=== PATIENT | male | born 1965 | race Hispanic/Latino ===

== ENCOUNTER 2018-07-14 12:02 | Inpatient (IN) | payer OTHER ==
[2018-07-14] MEDS ORDERED: NITROGLYCERIN 0.4 MG/TAB SL ONE (12:25)
--- NOTE | 2018-07-14 12:37 | RAD REPORT ---
EXAM DESCRIPTION: RAD - Chest Single View - 07/14/2018 12:26 pm CLINICAL HISTORY: CHEST PAIN Chest pain. COMPARISON: No comparisons FINDINGS: Portable technique limits examination quality. The lungs are grossly clear. The heart is normal in size. No displaced fractures. IMPRESSION: No acute intrathoracic process suspected.
[2018-07-14 12:43] LABS: Absolute Lymphocytes (CBC) 1.6 K/uL (0.7-4.9); Absolute Monocytes 0.6 K/uL (0.1-1.3); Absolute Neutrophil 11.3 K/uL (1.8-8.0); Basophils % 0.8 % (0-1.3); Eosinophils % 0.6 % (0-4.4); Lymphocytes % 11.7 % (15.3-44.8); MPV 9.9 fL (7.6-11.3); Monocytes % 4.5 % (3.3-12.3); RBC Red Blood Cell Count 4.71 M/uL (4.33-5.43)
[2018-07-14 12:56] LABS: Protime INR 0.99
[2018-07-14 13:07] LABS: ALT/SGPT 28 U/L (12-78); AST/SGOT 21 U/L (15-37); Albumin 3.9 g/dL (3.4-5.0); Alkaline Phosphatase 76 U/L (45-117); BUN Blood Urea Nitrogen 7 mg/dL (7-18); Bicarbonate 23 mmol/L (21-32); Bilirubin Direct < 0.1 mg/dL (0-0.2); Bilirubin Total 0.3 mg/dL (0.2-1.0); Glucose Level 127 mg/dL (74-106); NT PRO-BNP 64 pg/mL (<125); Potassium 3.9 mmol/L (3.5-5.1); Protein, Total 7.6 g/dL (6.4-8.2); Sodium Level 139 mmol/L (136-145); Troponin (Emerg Dept Use Only) 0.04 ng/mL (0.0-0.045)
--- NOTE | 2018-07-14 13:39 | ER ---
Nurse's Notes [facility] Name: Rickey Rogel Age: 53 yrs Sex: Male : 1965 Arrival Date: 07/14/2018 Time: 12:[address] Private MD: Diagnosis: Chest pain, unspecified Presentation: 07/14 12:07 Presenting complaint: EMS states: Substernal chest pain started about 0900, gave 4 jl7 aspirin, pain rated 8/10. Transition of care: patient was not received from another setting of care. Onset of symptoms was July 14, 2018. Risk Assessment: Do you want to hurt yourself or someone else? Patient reports no desire to harm self or others. Initial Sepsis Screen: Does the patient meet any 2 criteria? No. Patient's initial sepsis screen is negative. Does the patient have a suspected source of infection? No. Patient's initial sepsis screen is negative. Care prior to arrival: Medication(s) given: ASA, 81 mg, x 4, IV initiated. 18 GA, in the left antecubital area, Oxygen administered. via a non-rebreather mask. 12:07 Method Of Ar[facility]: [facility] 12:07 Acuity: TIERNEY 3 jl7 Triage Assessment: 12:09 General: Appears in no apparent distress. uncomfortable, Behavior is calm, cooperative, jl7 appropriate for age. Pain: Complains of pain in mid-sternal area Pain does not radiate. Pain currently is 8 out of 10 on a pain scale. Quality of pain is described as pressure, Pain began 3 hours ago. Is continuous. EENT: No signs and/or symptoms were reported regarding the EENT system. Neuro: Level of Consciousness is awake, alert, obeys commands, Oriented to person, place, time, situation. Cardiovascular: Heart tones present Patient's skin is warm and dry. Rhythm is regular. Respiratory: Airway is patent Respiratory effort is even, unlabored, Respiratory pattern is regular, symmetrical. GI: No signs and/or symptoms were reported involving the gastrointestinal system. : Derm: Skin is pink, warm \\T\\ dry. Musculoskeletal: No signs and/or symptoms reported regarding the musculoskeletal system. Historical: - Allergies: 12:09 No Known Allergies; jl7 - Home Meds: 12:09 None [Active]; jl7 - PMHx: 12:09 None; jl7 - PSHx: 12:09 None; jl7 - Immunization history:: Adult Immunizations not up to date. - Social history:: Smoking status: Patient uses tobacco products, smokes one pack cigarettes per day. Patient/guardian denies using alcohol, street drugs, The patient lives with family. - Ebola Screening: : No symptoms or risks identified at this time. - Family history:: not pertinent. Screenin:15 Abuse screen: Denies threats or abuse. Nutritional screening: No deficits noted. tw2 Tuberculosis screening: No symptoms or risk factors identified. Fall Risk None identified. Assessment: 12:10 General: Appears in no apparent distress. Behavior is cooperative, appropriate for age. tw2 Pain: Complains of pain in chest and mid-sternal area Pain does not radiate. Neuro: Level of Consciousness is awake, alert, obeys commands, Oriented to person, place, time, situation. Cardiovascular: Heart tones S1 S2 Patient's skin is warm and dry. Respiratory: Airway is patent Respiratory effort is even, unlabored, Respiratory pattern is regular, symmetrical, Breath sounds are clear bilaterally. GI: No signs and/or symptoms were reported involving the gastrointestinal system. Abdomen is round non-distended, Bowel sounds present X 4 quads. : No signs and/or symptoms were reported regarding the genitourinary system. EENT: Derm: No signs and/or symptoms reported regarding the dermatologic system. Musculoskeletal: Range of motion: intact in all extremities. 13:13 Reassessment: Patient appears in no apparent distress at this time. Patient and/or tw2 family updated on plan of care and expected duration. Pain level reassessed. Patient is alert, oriented x 3, equal unlabored respirations, skin warm/dry/pink. 13:16 Reassessment: reports "he is just not comfortable there is something going on, can tw2 you have the doctor come see him", provider notified. 13:27 Reassessment: Dr. Mosqueda at bedside. tw2 13:34 Reassessment: Dr. Mosqueda consulting with pt on decision to admit, pt vu. tw2 14:04 Reassessment: Patient and/or family updated on plan of care and expected duration. Pain tw2 level reassessed. Patient is alert, oriented x 3, equal unlabored respirations, skin warm/dry/pink. Dr. Stephens at bedside at this time. 14:14 Reassessment: Patient appears in no apparent distress at this time. Patient and/or tw2 family updated on plan of care and expected duration. Pain level reassessed. Patient is alert, oriented x 3, equal unlabored respirations, skin warm/dry/pink. 15:08 Reassessment: Patient appears in no apparent distress at this time. Patient and/or tw2 family updated on plan of care and expected duration. Pain level reassessed. Patient is alert, oriented x 3, equal unlabored respirations, skin warm/dry/pink. Vital Signs: 12:09 BP 153 / 87; Pulse 68; Resp 16; Pulse Ox 96% ; Weight 83.01 kg; Height 5 ft. 7 in. jl7 (170.18 cm); Pain 8/10; 13:13 BP 143 / 83; Pulse 69; Resp 21; Pulse Ox 97% on 2 lpm NC; tw2 13:16 Temp 98.5(O); tw2 13:28 Pulse 42; tw2 14:14 BP 109 / 64; Pulse 56; Resp 16; Pulse Ox 98% on R/A; tw2 15:08 BP 101 / 50; Pulse 51; Resp 17; Pulse Ox 100% on R/A; tw2 12:09 Body Mass Index 28.66 (83.01 kg, 170.18 cm) jl7 13:28 provider at bedside tw2 ED Course: 12:07 Patient arrived in ED. jl7 12:07 Bed in low position. Call light in reach. Side rails up X 1. absorption plant operator on. Pulse tw2 ox on. NIBP on. 12:09 Triage completed. jl7 12:09 Arm band placed on right wrist. jl7 12:12 Karlee Solano, MERCEDES is Primary Nurse. tw2 12:14 Jairo Mosqueda MD is Attending Physician. ma2 12:25 X-ray completed. Portable x-ray completed in exam room. Patient tolerated procedure jw2 well. 12:26 XRAY Chest (1 view) In Process Unspecified. EDMS 12:34 Maintain EMS IV. Dressing intact. Good blood return noted. Site clean \\T\\ dry. Gauge \\T\\ tw 2 site: 18 g LEFT AC. Oxygen administration via nasal cannula \\T\\ 2L/min. 13:37 Sherrell Stephens MD is Hospitalizing Provider. ma2 13:40 Inserted saline lock: 20 gauge in right antecubital area, using aseptic technique. IV tw2 discontinued, intact, bleeding controlled, No redness/swelling at site. Pressure dressing applied, LEFT ac infiltrated at this time. 14:22 Patient moved to [place] via stretcher. 14:31 Awaiting: attempted to call report, per Anthony the room is dirty and MERCEDES Argueta will need tw2 to call me back. 14:49 CT completed. Patient tolerated procedure well. Patient moved back from CT. vm2 15:05 No provider procedures requiring assistance completed. tw2 Administered Medications: 12:18 Drug: Nitroglycerin 0.4 mg Route: Sublingual; jl7 15:10 Follow up: Response: No adverse reaction tw2 13:42 Drug: Zofran 4 mg Route: IVP; Site: right antecubital; tw2 15:09 Follow up: Response: No adverse reaction tw2 13:44 Drug: morphine 4 mg Route: IVP; Site: right antecubital; tw2 15:09 Follow up: Response: No adverse reaction; Pain is decreased tw2 13:51 Drug: NS 0.9% 1000 ml Route: IV; Rate: 1 bolus; Site: right antecubital; tw2 15:09 Follow up: Response: No adverse reaction; IV Status: Completed infusion; IV Intake: tw2 1000ml Intake: 15:09 IV: 1000ml; Total: 1000ml. tw2 Outcome: 13:38 Decision to Hospitalize by Provider. ma2 15:06 Admitted to Med/surg accompanied by tech, via stretcher, room 209, with chart, Report tw2 called to Mercedes Argueta, per Ellie room is still not cleaned and to give them 15 minutes 15:06 Condition: stable 15:06 Instructed on the need for admit. 16:02 Patient left the ED. tw2 Signatures: Dispatcher [employer] Raven May Jenni 2 Karlee Solano RN RN tw2 Savana Ayers RN RN jl7 Yahaira Kemp 2 Jairo Mosqueda MD MD la2
--- NOTE | 2018-07-14 13:39 | EDPHYS ---
Physician Documentation [facility] Name: Rickey Rogel Age: 53 yrs Sex: Male : 1965 Arrival Date: 07/14/2018 Time: 12:[address] Private MD: ED Physician Jairo Mosqueda HPI: 07/14 12:15 This 53 yrs old Male presents to ER via EMS with complaints of Chest Pain > 30 ma2 y/o. 12:15 Onset: gradually, 1 hour(s) ago. The pain does not radiate. Associated signs and ma2 symptoms: Pertinent positives: Pertinent negatives: abdominal pain, diaphoresis, lower extremity pain, lightheadedness, near syncope. The chest pain is described as aching, crushing. Severity of pain: At its worst the pain was moderate in the emergency department the pain has improved. The patient has not experienced similar symptoms in the past. Historical: - Allergies: 12:09 No Known Allergies; jl7 - Home Meds: 12:09 None [Active]; jl7 - PMHx: 12:09 None; jl7 - PSHx: 12:09 None; jl7 - Immunization history:: Adult Immunizations not up to date. - Social history:: Smoking status: Patient uses tobacco products, smokes one pack cigarettes per day. Patient/guardian denies using alcohol, street drugs, The patient lives with family. - Ebola Screening: : No symptoms or risks identified at this time. - Family history:: not pertinent. ROS: 12:15 Constitutional: Negative for fever, chills, and weight loss, Neck: Negative for injury, ma2 pain, and swelling. 12:15 Respiratory: Negative for shortness of breath, cough, wheezing, and pleuritic chest pain, Abdomen/GI: Negative for abdominal pain, nausea, diarrhea, and constipation. 12:15 Cardiovascular: Positive for chest pain, Negative for edema, orthopnea, palpitations, acute changes. 12:15 All other systems are negative. Exam: 12:15 Constitutional: This is a well developed, well nourished patient who is awake, alert, ma2 and in no acute distress. Chest/axilla: Normal chest wall appearance and motion. Nontender with no deformity. No lesions are appreciated. Cardiovascular: Regular rate and rhythm with a normal S1 and S2. No gallops, murmurs, or rubs. Normal PMI, no JVD. No pulse deficits. Respiratory: Lungs have equal breath sounds bilaterally, clear to auscultation and percussion. No rales, rhonchi or wheezes noted. No increased work of breathing, no retractions or nasal flaring. Abdomen/GI: Soft, non-tender, with normal bowel sounds. No distension or tympany. No guarding or rebound. No evidence of tenderness throughout. Neuro: Awake and alert, GCS 15, oriented to person, place, time, and situation. Cranial nerves II-XII grossly intact. Motor strength 5/5 in all extremities. Sensory grossly intact. Cerebellar exam normal. Normal gait. Vital Signs: 12:09 BP 153 / 87; Pulse 68; Resp 16; Pulse Ox 96% ; Weight 83.01 kg; Height 5 ft. 7 in. jl7 (170.18 cm); Pain 8/10; 13:13 BP 143 / 83; Pulse 69; Resp 21; Pulse Ox 97% on 2 lpm NC; tw2 13:16 Temp 98.5(O); tw2 13:28 Pulse 42; tw2 14:14 BP 109 / 64; Pulse 56; Resp 16; Pulse Ox 98% on R/A; tw2 15:08 BP 101 / 50; Pulse 51; Resp 17; Pulse Ox 100% on R/A; tw2 12:09 Body Mass Index 28.66 (83.01 kg, 170.18 cm) 7 13:28 provider at bedside tw2 MDM: 12:14 [facility] 12[facility]15 Differential diagnosis: acute pericarditis, coronary artery disease chest wall pain, ma2 gastroesophageal reflux disease (GERD), stable angina. HEART Score: History: Highly Suspicious (2), ECG: Non specific repolarization disturbance / LBTB / PM (1), Age: > 45 and < 65 years (1), Risk Factors: 1 or 2 risk factors (1), Total Score =. The patient was not given aspirin in the Emergency Department. Administered by EMS. 13:36 Data reviewed: vital signs, nurses notes. Counseling: I had a detailed discussion with ma2 the patient and/or guardian regarding: the historical points, exam findings, and any diagnostic results supporting the discharge/admit diagnosis, the presence of at least one elevated blood pressure reading (>120/80) during this emergency department visit, the need for further work-up and treatment in the hospital. Response to treatment: the patient's symptoms have markedly improved after treatment. 07/14 12:15 Order name: Basic Metabolic Panel; Complete Time: 13:33 07/14 12:15 Order name: CBC with Diff; Complete Time: 13:33 07/14 12:15 Order name: LFT's; Complete Time: 13:33 07/14 12:15 Order name: Magnesium; Complete Time: 13:07/14 12:15 Order name: NT PRO-BNP; Complete Time: 13:07/14 12:15 Order name: PT-INR; Complete Time: 13:07/14 12:15 Order name: Troponin (emerg Dept Use Only); Complete Time: 13:07/14 12:15 Order name: XRAY Chest (1 view); Complete Time: 13:07/14 13:35 Order name: [facility] 07/14 14:18 Order name: CT Chest For PE Angio 07/14 14:53 Order name: CT EDRI 07/14 12:15 Order name: EKG; Complete Time: 12:16 07/14 12:15 Order name: Cardiac monitoring; Complete Time: 12:18 07/14 12:15 Order name: EKG - Nurse/Tech; Complete Time: 12:17 07/14 12:15 Order name: IV Saline Lock; Complete Time: 12:17 07/14 12:15 Order name: Labs collected and sent; Complete Time: 12:34 07/14 12:15 Order name: O2 Per Protocol; Complete Time: 12:17 07/14 12:15 Order name: O2 Sat Monitoring; Complete Time: 12:17 07/14 14:08 Order name: Diet Heart Healthy; Complete Time: 14:09 tw2 Administered Medications: 12:18 Drug: Nitroglycerin 0.4 mg Route: Sublingual; jl7 15:10 Follow up: Response: No adverse reaction tw2 13:42 Drug: Zofran 4 mg Route: IVP; Site: right antecubital; tw2 15:09 Follow up: Response: No adverse reaction tw2 13:44 Drug: morphine 4 mg Route: IVP; Site: right antecubital; tw2 15:09 Follow up: Response: No adverse reaction; Pain is decreased tw2 13:51 Drug: NS 0.9% 1000 ml Route: IV; Rate: 1 bolus; Site: right antecubital; tw2 15:09 Follow up: Response: No adverse reaction; IV Status: Completed infusion; IV Intake: tw2 1000ml Disposition: 07/14/18 13:38 Hospitalization ordered by Sherrell Stephens for Observation. Preliminary diagnosis is Chest pain, unspecified. - Bed requested for Telemetry/MedSurg (observation). - Status is Observation. tw2 - Condition is Stable. - Problem is new. - Symptoms are unchanged. UTI on Admission? No Signatures: Dispatcher [employer] EDMS Domitila Dickey RN RN iw Karlee Solano RN RN tw2 Savana yAers RN RN jl7 Jairo Mosqueda MD MD ma2 Corrections: (The following items were deleted from the chart) 14:25 13:38 Hospitalization Ordered by Sherrell Stephens MD for Observation. Preliminary diagnosis iw is Chest pain, unspecified. Bed requested for Telemetry/MedSurg (observation). Status is Observation. Condition is Stable. Problem is new. Symptoms are unchanged. UTI on Admission? No. ma2 16:02 14:25 07/14/2018 13:38 Hospitalization Ordered by Sherrell Stephens MD for Observation. tw2 Preliminary diagnosis is Chest pain, unspecified. Bed requested for Telemetry/MedSurg (observation). Status is Observation. Condition is Stable. Problem is new. Symptoms are unchanged. UTI on Admission? No. iw
[2018-07-14] MEDS ORDERED: NA CHLORIDE 0.9% 1,000 ML ONE (13:47)
[2018-07-14] MEDS ORDERED: MORPHINE 4 MG/ML SYR ONE (13:47)
[2018-07-14] MEDS ORDERED: ONDANSETRON 4 MG/2 ML VIAL ONE (13:47)
--- NOTE | 2018-07-14 14:52 | RAD REPORT ---
EXAM DESCRIPTION: CT - Chest For Pe Angio - 07/14/2018 2:43 pm CLINICAL HISTORY: Chest pain, dyspnea COMPARISON: Chest films same date TECHNIQUE: Dynamically enhanced 3 mm thick images of the chest were obtained during administration o f approximately 150mL Isovue 370 IV contrast. Coronal and oblique MIP reconstruction images were gene rated and reviewed. Exam utilizes a protocol to evaluate the pulmonary arterial tree. All CT scans are performed using dose optimization technique as appropriate and may include automated exposure control or mA/KV adjustment according to patient size. FINDINGS: No pulmonary emboli are identified. The aorta as imaged shows no acute or suspicious finding. No pericardial thickening or effusion. No infiltrate or mass in the lung parenchyma. No pleural effusion or pleural thickening. No mediastinal or hilar suspicious masses. No chest wall masses or abnormal axillary lymphadenopathy. Limited upper abdomen imaging shows cholecystectomy clips without biliary tree dilatation. Benitez of t he distal thoracic esophagus are mildly prominent. No mass or asymmetric wall thickening. . IMPRESSION: No pulmonary emboli identified. No focal lung parenchymal process seen. No mediastinal or hilar suspicious finding. Minimal prominence of the distal thoracic esophagus probably still normal range. No mass or asymmetri c wall thickening.
[2018-07-14] MEDS ORDERED: ACETAMINOPHEN 500 MG TAB PO PRN (15:14)
[2018-07-14] MEDS ORDERED: ALPRAZOLAM 0.25 MG TABLET PO PRN (15:14)
[2018-07-14] MEDS ORDERED: MORPHINE 4 MG/ML SYR IV PRN (15:14)
[2018-07-14] MEDS ORDERED: ZOLPIDEM TARTRATE 5 MG TABLET PO PRN (15:14)
[2018-07-14] MEDS ORDERED: NITROGLYCERIN 0.4 MG/TAB SL PRN (15:26)
[2018-07-14] MEDS ORDERED: ENOXAPARIN 40 MG/0.4 ML SQ SCH (16:00)
--- NOTE | 2018-07-14 20:47 | EKG ---
Test Date: 2018-07-14 Test Time: 19:19:06 Candles Pourer: RT MEASUREMENT RESULTS: Intervals: Rate: 61 IA: 168 QRSD: 82 QT: 400 QTc: 402 [place]: P: 68 IA: 168 QRS: 11 T: 71 INTERPRETIVE STATEMENTS: Normal sinus rhythm Nonspecific T wave abnormality Abnormal ECG Compared to ECG 07/14/2018 12:06:04 T-wave abnormality now present ST (T wave) deviation no longer present Possible ischemia no longer present Electronically Signed On 07-14-18 20:47:31 CONSTRUCTION ADMINISTRATIVE ASSISTANT by Dangelo Pantoja
--- NOTE | 2018-07-14 20:50 | EKG ---
Test Date: 2018-07-14 Test Time: 12:06:04 [employer]: KEENAN MEASUREMENT RESULTS: Intervals: Rate: 69 CA: 196 QRSD: 86 QT: 392 QTc: 420 [place]: P: 64 CA: 196 QRS: 49 T: 104 INTERPRETIVE STATEMENTS: Normal sinus rhythm ST & T wave abnormality, consider lateral ischemia Abnormal ECG No previous ECG available for comparison Electronically Signed On 07-14-18 20:47:58 DEPUTY SHERIFF CHIEF by Dangelo Pantoja
[2018-07-14] MEDS: ATORVASTATIN 40 MG TAB PO SCH (21:10)
[2018-07-14 21:44] LABS: Urine Appearance CLEAR; Urine Bilirubin NEGATIVE (NEG); Urine Blood NEGATIVE (NEG); Urine Color YELLOW; Urine Glucose TRACE (NEG); Urine Protein NEGATIVE (NEG); Urine Specific Gravity >=1.030 (1.005-1.030); Urine Urobilinogen 0.2 mg/dL (0.2-1.0); Urine pH 7.5 (5.0-7.0)
[2018-07-14 21:57] LABS: Urine Microscopic Reflex NO UMIC
--- NOTE | 2018-07-15 01:46 | HP ---
Date of Admission: 07/14/2018 Sharebroker: Dr. Pantoja with Cardiology. Chief Complaint: Chest pain. History Of Present Illness: The patient is a 53-year-old male with no significant past medical history other than smoking, who has not seen a physician for over 3 years. Does not take his medications. Comes in with sudden onset of chest pain. The patient felt as if he had some acid reflux and gas. He had some burping, unable to relieve the pain. The patient felt like he was nauseous; however, did not vomit. Then, had sudden onset of sharp pain which was substernal, associated with diaphoresis and nausea. At that time, the patient became concerned and came to the emergency room for further evaluation. Symptoms are constant, moderate, progressively worsening. Denies any alleviating or aggravating factors. The pain started at rest. Has not experienced this type of pain previously. In the ER, his vital signs were stable. He was afebrile. His heart rate, however, did drop into the 40s on one occasion. His workup revealed elevated white blood cell count. His initial cardiac enzymes and troponin were negative. D-dimer, however, was elevated. CT angio of the chest is pending. When seen in the ER, he was awake , alert, and oriented x3. He had significant relief with nitroglycerin and aspirin. Past Medical History: Hypertension. Past Surgical History: None. Allergies: NO KNOWN DRUG ALLERGIES. Medications: The patient does not take any medications on a regular basis. Social History: The patient is currently employed. Smokes a pack and a half per day for greater than 30 years ago. Rare alcohol use. No illicit drug use. The patient is , has 2 children. Does not use any assistive ambulatory devices. Independent in his activities of daily living. Family History: Parent has atrial fibrillation. No history of [place] or premature coronary artery disease in the family. Review of Systems: An 11-point system was reviewed and negative except as per HPI. Physical Examination: Vital Signs: Blood pressure 152/87, pulse 68, respirations 16, O2 of 96% on room air, and temperature 98.5. General: Awake, alert, oriented x3. Some mild distress. HEENT: Normocephalic, atraumatic. PERRLA. EOMI. Moist mucous membranes. Oropharynx is clear. Conjunctivae are anicteric. Neck: Supple. No JVD. Trachea midline. CV: S1, S2. Regular rate and rhythm. Peripheral pulses present. Respiratory: Moving air well bilaterally. No wheezing or stridor. No use of accessory muscles. Gastrointestinal: Abdomen is soft, nontender, nondistended. Positive bowel sounds. No guarding or rigidity. Extremities: No clubbing, cyanosis, or edema. No calf tenderness. Neurologic: Cranial nerves 2 through 12 intact grossly. No focal neurological deficit. Speech is normal. Strength is 5/5 bilateral upper and lower extremities. Sensation intact to light touch. Skin: No rashes. Normal skin turgor. Psychiatric: Mood is okay. Affect is full. Insight and judgment are good. Laboratory Data: INR 0.99. D-dimer 931. WBC 13.7, H and H 15 and 44, platelets 274, and neutrophils 82%. Sodium 139, potassium 3.9, chloride 108, CO2 of 23, BUN 7, creatinine 0.91, glucose 127, calcium 8.7, magnesium 2. Troponin 0.04. Chest x-ray personally reviewed, shows no acute intrathoracic process. CT angio chest is pending. Assessment And Plan: A 53-year-old male with; 1. Chest pain, rule out acute coronary syndrome. Initial cardiac enzyme and electrocardiogram have been normal. We will obtain serial cardiac enzymes and electrocardiogram as needed. Consult Cardiology. We will obtain echocardiogram to rule out any wall motion abnormality. The patient did have relief with aspirin and nitroglycerin. We will start on chest pain guidelines. We will hold beta-stephen due to episode of bradycardia. Heart rate was in the 40s. 2. Essential hypertension. The patient is noncompliant with treatment. Does not take his medications. Has not seen a physician in over 3 years. 3. Elevated D-dimer. We will follow up on CT scan angio chest to rule out pulmonary embolism, although this patient is not tachycardic or tachypneic. No pleuritic chest pain. He does have risk factor of smoking. 4. Nicotine dependence with cigarette smoking. Counseled for less than 10 minutes. 5. Overweight, body mass index 28. 6. Neutrophilic leukocytosis, unclear etiology. No dysuria. Chest x-ray is clear. Maybe related to acute phase reactant. We will continue to monitor. No signs of sepsis. No indication for antibiotics at this time. 7. Deep venous thrombosis prophylaxis with Lovenox. Plan: Admit the patient to Med-Surg, place as observation. ADDENDUM: A/P: VIRAL LEE/MACHELLE Voice ID: [id number] MTDD
--- NOTE | 2018-07-15 03:37 | CON ---
Date of Consultation: 07/14/2018 Reason For Consultation: Acute coronary syndrome. History Of Present Illness: Mr. Rogel is a 53-year-old Latin-[place] male with history of hyperten dhiraj, family history of heart disease, tobacco use, noncompliance, has not been to a physician for ma ny years; developed substernal chest pressure with diaphoresis, nausea and shortness of breath. His pain was exertional, lasted approximately 4 hours. He came to the emergency room, was admitted and w as found to have a troponin elevation consistent with non-ST elevation myocardial infarction. Allergies: NONE. Review of Systems: Negative. Social History: Positive for tobacco. Family History: Positive for heart disease. Medications: At home are none. Physical Examination: Vital Signs: Stable. He was afebrile. HEENT: Negative. Neck: Supple without any bruit, lymphadenopathy, JVD, or thyromegaly. Chest: Clear to auscultation and percussion. Cardiac: Revealed a regular rhythm and rate without any murmurs, gallops, or rubs. Abdomen: Benign. Extremities: Revealed no clubbing, cyanosis, or edema. Diagnostic Data: His creatinine is 0.91. White count was 13,000. His D-dimer was 931. His troponi n was 12.60. His cholesterol was 203, triglycerides 282. His EKG showed normal sinus rhythm with no nspecific changes. Chest x-ray and CT angiogram were negative. Impression And Plan: 1.Non-ST elevation myocardial infarction. 2.Elevated white count and D-dimer secondary to his myocardial infarction. 3.Hypertension. 4.Dyslipidemia. Mr. Rogel needs to be on aspirin, statin, beta-blockers. He needs to have a heart catheterization d one to define his coronary anatomy and possibly intervene with a stent. The patient understands the risk and the benefits of the procedure and he agrees to proceed. AMANDA/MACHELLE Voice ID: [id number] Report ID: [id number]
[2018-07-15 06:06] LABS: Absolute Lymphocytes (CBC) 2.8 K/uL (0.7-4.9); Absolute Monocytes 0.8 K/uL (0.1-1.3); Absolute Neutrophil 8.8 K/uL (1.8-8.0); Basophils % 0.7 % (0-1.3); Eosinophils % 1.7 % (0-4.4); Hematocrit 41.9 % (39.6-49.0); Lymphocytes % 22.1 % (15.3-44.8); Monocytes % 6.3 % (3.3-12.3); RBC Red Blood Cell Count 4.44 M/uL (4.33-5.43)
[2018-07-15 06:17] LABS: Potassium 4.5 mmol/L (3.5-5.1)
--- NOTE | 2018-07-15 07:49 | ECHO ---
HEIGHT: 5 ft 7 in WEIGHT: 187 lb 0 oz DATE OF STUDY: 07/14/[address]: Sherrell Stephens MD 2-DIMENSIONAL: YES M.MODE: YES DOPPLER: YES COLOR FLOW: YES TDS: PORTABLE: DEFINITY: BUBBLE STUDY: DIAGNOSIS: CHEST PAIN CARDIAC HISTORY: CATHERIZATION: NO SURGERY: NO PROSTHETIC VALVE: NO PACEMAKER: NO MEASUREMENTS (cm) DIASTOLIC (NORMALS) SYSTOLIC (NORMALS) IVSd 1.1 (0.6-1.2) LA Diam 33.7 (1.9-4.0) LVEF 60-65% LVIDd 3.7 (3.5-5.7) LVIDs 2.8 (2.0-3.5) %FS 25% LVPWd 1.1 (0.6-1.2) Ao Diam 2.6 (2.0-3.7) 2 DIMENSIONAL ASSESSMENT: RIGHT ATRIUM: NORMAL LEFT ATRIUM: NORMAL RIGHT VENTRICLE: NORMAL LEFT VENTRICLE: NORMAL TRICUSPID VALVE: NORMAL MITRAL VALVE: NORMAL PULMONIC VALVE: NORMAL AORTIC VALVE: NORMAL PERICARDIAL EFFUSION: NONE AORTIC ROOT: NORMAL LEFT VENTRICULAR WALL MOTION: NORAML DOPPLER/COLOR FLOW: MILD TRICUPSID REGURGITATION. RIGHT VENTRICULAR SYSTOLIC PRESSURE 36 mmHg. COMMENTS: NORMAL 2-DIMENSIONAL ECHOCARDIOGRAM EJECTION FRACTION 60-65%. MILD TRICUSPID REGURGITATION. NO WALL MOTION ABNORMALITY. NO EFFUSION. TECHNOLOGIST: TRISH CARO
[2018-07-15] MEDS: ENOXAPARIN 80 MG/0.8 ML SQ SCH (09:00)
[2018-07-15] MEDS ORDERED: NA CHLORIDE 0.9% 500 ML ONE (09:06)
[2018-07-15] MEDS ORDERED: HEPA 1000U/500MLS 1,000 UNIT/500 ML BAG IV ONE (09:06)
[2018-07-15] MEDS ORDERED: LIDOCAINE 1% 20 ML MDV ONE (09:07)
[2018-07-15] MEDS ORDERED: LIDOCAINE 1% MPF 30 ML VIAL ONE (09:07)
[2018-07-15] MEDS ORDERED: FENTANYL CITR 100 MCG/2 ML ONE (09:08)
[2018-07-15] MEDS ORDERED: MIDAZOLAM HCL 2 MG/2 ML INJ ONE ×2 (09:08→09:41)
[2018-07-15] MEDS ORDERED: NA CHLORIDE 0.9% 50 ML ONE (09:21)
[2018-07-15] MEDS ORDERED: NITROGLYCERIN/D5W 25 MG/250 ML BTL IV ONE (10:05)
[2018-07-15] MEDS ORDERED: NITROGLYCERIN 100 MCG/ML SYR (for cath lab use only) IV ONE (10:05)
[2018-07-15] MEDS ORDERED: PRASUGREL (EFFIENT) 10 MG TAB ONE (10:17)
[2018-07-15] MEDS ORDERED: ASPIRIN 325 MG TAB ONE (10:19)
[2018-07-15] MEDS: LISINOPRIL 10 MG TAB PO SCH (11:37)
[2018-07-15] MEDS: NA CHLORIDE 0.9% 1,000 ML IV SCH ×2 (11:37→22:00)
[2018-07-15] MEDS: ASPIRIN EC 81 MG TAB PO SCH (11:38)
--- NOTE | 2018-07-15 15:20 | P.PN ---
Subjective Date of Service: 07/15/18 Chief Complaint: Chest pain Subjective: No new changes Patient seen and examined at bedside. No family at bedside. Chart reviewed and case discussed with nursing staff. Reports no chest pain this morning Review of Systems 10-point ROS is otherwise unremarkable Physical Examination - Vital Signs Temperature: 98.1 F Blood Pressure: 138/80 Pulse: 53 Respirations: 17 Pulse Ox (%): 95 - Physical Exam General: Alert, In no apparent distress, Oriented x3 HEENT: Atraumatic, PERRLA, EOMI Neck: Supple, JVD not distended Respiratory: Clear to auscultation bilaterally, Normal air movement Cardiovascular: Regular rate/rhythm, Normal S1 S2 Gastrointestinal: Normal bowel sounds, No tenderness Musculoskeletal: No tenderness Integumentary: No rashes Neurological: Normal speech, Normal tone, Normal affect Lymphatics: No axilla or inguinal lymphadenopathy Assessment And Plan - Current Problems (Diagnosis) (1) Chest pain Current Visit: Yes Status: Acute Qualifiers: Chest pain type: unspecified Qualified Code(s): R07.9 - Chest pain, unspecified (2) Hypertension Current Visit: Yes Status: Acute Qualifiers: Hypertension type: essential hypertension Qualified Code(s): I10 - Essential (primary) hypertension (3) Leukocytosis Current Visit: Yes Status: Acute Qualifiers: Leukocytosis type: unspecified Qualified Code(s): D72.829 - Elevated white blood cell count, unspecified (4) Nicotine dependence Current Visit: Yes Status: Acute Qualifiers: Nicotine product type: cigarettes Substance use status: uncomplicated Qualified Code(s): F17.210 - Nicotine dependence, cigarettes, uncomplicated (5) Overweight (BMI 25.0-29.9) Current Visit: Yes Status: Chronic (6) Elevated d-dimer Current Visit: Yes Status: Acute (7) Non-compliance Current Visit: Yes Status: Chronic - Plan This is a 53-year-old male with: Chest pain, rule out acute coronary syndrome Initial electrocardiogram normal and troponin elevated to 12.6 from initial 3.68 Cardiology was consulted. Patient is pending heart catheterization Essential hypertension Patient has a history of noncompliance and he does not these medications at home. He has not seen a physician in over 3 years Blood pressure has been stable on lisinopril. Continue lisinopril Elevated D-dimer CT scan angio of the chest without any evidence of pulmonary embolus Continue to monitor Nicotine dependence with cigarette smoking Counseled on smoking cessation Overweight, BMI of 28 Neutrophilic leukocytosis, unclear etiology Improving DVT prophylaxis: Hold for heart catheterization GI prophylaxis: None Diet: NPO for heart catheterization Disposition: Pending heart catheterization
--- NOTE | 2018-07-15 22:01 | OP ---
Date of Procedure: 07/15/2018 Surgeon: Dangelo Pantoja MD Protective Clothing Issuer: Shekhar Donohue. Total conscious sedation was 60 minutes. Indications: Admitted to Dr. Stephens's service on 07/14/2018 with a [id number] myocardial infarc tion. Description Of Procedure: Today, on 07/15/2018, he was brought to the catheterization lab as an inpa tient, prepped and draped in the routine sterile fashion. Procedure that was performed was left hear t catheterization, selective coronary arteriogram, primary stent of the distal RCA, angioplasty of th e proximal posterolateral branch. The patient was given 4 mg of Versed and 25 of fentanyl for sedati on. Right common femoral artery access was obtained through the 6-Sammarinese sheath. Angio-Seal was use d to close the case. Angiography using Darlene catheter 6-Sammarinese left and right showed mild plaquing in the LAD and circumflex. He was codominant. RCA had no plaquing proximally; but distally before the bifurcation of the posterolateral and PDA, had 90%-plus stenosis with a possible thrombus. A CLEAR stent was placed, a 2.5 x 16 Synergy, just before the bifurcation with 0% residual. After the s tent, there seemed to be some progression of the thrombus toward the posterolateral branch which had some mild disease to start off with. Angioplasty there with a 2.5 x 12 Emerge balloon left about a 1 0% residual with some haziness. There was no hemodynamic compromise. No chest pain. No arrhythmias . No EKG changes. The patient tolerated the procedure well without any complications. Blood Loss: 5 cc. Postoperative Diagnosis: Status post successful stent of the right coronary artery, percutaneous tra nsluminal coronary angioplasty of the posterolateral. Medications: The patient was given 60 mg of Effient. He was given 325 mg of aspirin. He was on Ang iomax during the procedure. He will be later placed on statin and beta-blockers. NB/MODL Voice ID: [id number] Report ID: [id number]
[2018-07-15] MEDS: ATORVASTATIN 40 MG TAB PO SCH (22:24)
[2018-07-16] MEDS: NA CHLORIDE 0.9% 1,000 ML IV SCH (08:00)
[2018-07-16] MEDS: LISINOPRIL 10 MG TAB PO SCH (09:54)
[2018-07-16] MEDS: ASPIRIN EC 81 MG TAB PO SCH (09:54)
[2018-07-16] MEDS: ENOXAPARIN 80 MG/0.8 ML SQ SCH (09:55)
--- NOTE | 2018-07-16 20:17 | PN ---
Date of Progress Note: 07/16/2018 The patient had come in with a subendocardial ID. He was a pretty healthy gentleman without any past medical history except for reflux. He does smoke however, has a family history. Yesterday had a walsh bendocardial ID, underwent a catheterization, had a stent of his distal RCA successfully and an angio plasty of his proximal posterolateral branch off the RCA. He had moderate diffuse plaquing of the ci rcumflex and the LAD. The stent went well. He had no complications overnight. He had no chest pain . Telemetry remained normal sinus rhythm. His right groin is intact. He will be going home on aspi rin, Plavix, Lipitor and Toprol, and he will see me in the office in the next 2 weeks. AMANDA/MACHELLE Voice ID: [id number] Report ID: [id number]
--- NOTE | 2018-07-24 12:01 | P.DS ---
Admission Date: 07/14/18 Discharge Date: 07/16/18 Disposition: ROUTINE DISCHARGE Discharge Condition: GOOD Reason for Admission: Chest pain Consultations: Cardiology, Dr. Pantoja Procedures: 07/15/2018: stent of his distal RCA and an angioplasty of his proximal posterolateral branch off the RCA. - Problems (1) Chest pain Status: Acute Qualifiers: Chest pain type: unspecified Qualified Code(s): R07.9 - Chest pain, unspecified (2) Hypertension Status: Acute Qualifiers: Hypertension type: essential hypertension Qualified Code(s): I10 - Essential (primary) hypertension (3) Leukocytosis Status: Acute Qualifiers: Leukocytosis type: unspecified Qualified Code(s): D72.829 - Elevated white blood cell count, unspecified (4) Nicotine dependence Status: Acute Qualifiers: Nicotine product type: cigarettes Substance use status: uncomplicated Qualified Code(s): F17.210 - Nicotine dependence, cigarettes, uncomplicated (5) Overweight (BMI 25.0-29.9) Status: Chronic (6) Elevated d-dimer Status: Acute (7) Non-compliance Status: Chronic (8) NSTEMI (non-ST elevated myocardial infarction) Status: Acute Brief History of Present Illness: The patient is a 53-year-old male with no significant past medical history other than smoking, who has not seen a physician for over 3 years. Does not take his medications. Comes in with sudden onset of chest pain. The patient felt as if he had some acid reflux and gas. He had some burping, unable to relieve the pain. The patient felt like he was nauseous; however, did not vomit. Then, had sudden onset of sharp pain which was substernal, associated with diaphoresis and nausea. At that time, the patient became concerned and came to the emergency room for further evaluation. Symptoms are constant, moderate, progressively worsening. Denies any alleviating or aggravating factors. The pain started at rest. Has not experienced this type of pain previously. In the ER, his vital signs were stable. He was afebrile. His heart rate, however, did drop into the 40s on one occasion. His workup revealed elevated white blood cell count. His initial cardiac enzymes and troponin were negative. D-dimer, however, was elevated. CT angio of the chest is pending. When seen in the ER, he was awake, alert, and oriented x3. He had significant relief with nitroglycerin and aspirin. Hospital Course: Non STEMI: Initial cardiac enzyme and electrocardiogram were normal. He had elevation in serial cardiac enzymes. Cardiology was consulted and patine underwent angioplasty wiht stnt placement. He was started on chest pain guidelines. beta-stephen was held due to episode of bradycardia. Heart rate was in the 40s. He tolerated the stent placement well wihtout any complications. He was discharged with chest pain medications and instructions to follow up with cardiology. 2. Essential hypertension. The patient is noncompliant with treatment. Does not take his medications. Started HTN medications, counseled and educated on medication compliance. 3. Elevated D-dimer. CT PE negative for PE. He does have risk factor of smoking. Hemodynamically stable. 4. Nicotine dependence with cigarette smoking. Counseled for smoking cessation. Vital Signs/Physical Exam: Temp Pulse Resp BP Pulse Ox 99 F 63 18 141/76 H 97 07/16/18 12:00 07/16/18 12:00 07/16/18 12:00 07/16/18 12:00 07/16/18 12:00 General: Alert, In no apparent distress HEENT: Atraumatic, PERRLA, EOMI Neck: Supple, JVD not distended Respiratory: Clear to auscultation bilaterally, Normal air movement Cardiovascular: Regular rate/rhythm, Normal S1 S2 Gastrointestinal: Normal bowel sounds, No tenderness Musculoskeletal: No tenderness Integumentary: No rashes Neurological: Normal speech, Normal tone, Normal affect Lymphatics: No axilla or inguinal lymphadenopathy Laboratory Data at Discharge: WBC 12.7 K/uL (4.3-10.9) H 07/15/18 05:32 Hgb 14.2 g/dL (13.6-17.9) 07/15/18 05:32 Hct 41.9 % (39.6-49.0) 07/15/18 05:32 Plt Count 248 K/uL (152-406) 07/15/18 05:32 PT 11.7 SECONDS (9.5-12.5) 07/14/18 12:28 INR 0.99 07/14/18 12:28 Sodium 142 mmol/L (136-145) 07/15/18 05:32 Potassium 4.5 mmol/L (3.5-5.1) 07/15/18 05:32 BUN 9 mg/dL (7-18) 07/15/18 05:32 Creatinine 0.88 mg/dL (0.55-1.3) 07/15/18 05:32 Glucose 93 mg/dL (74-106) 07/15/18 05:32 Magnesium 2.0 mg/dL (1.8-2.4) 07/14/18 12:28 Total Bilirubin 0.3 mg/dL (0.2-1.0) 07/14/18 12:28 AST 21 U/L (15-37) 07/14/18 12:28 ALT 28 U/L (12-78) 07/14/18 12:28 Alkaline Phosphatase 76 U/L (45-117) 07/14/18 12:28 Troponin I 12.60 ng/mL (0.0-0.045) H* D 07/14/18 18:55 Triglycerides 311 mg/dL (<150) H 07/15/18 05:32 Cholesterol 189 mg/dL (<200) 07/15/18 05:32 HDL Cholesterol 34 mg/dL (40-60) L 07/15/18 05:32 Cholesterol/HDL Ratio 5.56 07/15/18 05:32 Home Medications: Atorvastatin Calcium [Lipitor] 80 mg PO DAILY #30 tablet 07/16/18 Bupropion HCl [Wellbutrin] 150 mg PO BID #120 tablet 07/16/18 Clopidogrel Bisulfate [Plavix] 75 mg PO DAILY #30 tablet 07/16/18 Metoprolol Succinate [Toprol Xl] 50 mg PO DAILY #30 tab 07/16/18 New Medications: Atorvastatin Calcium [Lipitor] 80 mg PO DAILY #30 tablet Bupropion HCl [Wellbutrin] 150 mg PO BID #120 tablet Clopidogrel Bisulfate [Plavix] 75 mg PO DAILY #30 tablet Metoprolol Succinate [Toprol Xl] 50 mg PO DAILY #30 tab Patient Discharge Instructions: Please follow up with your primary care physician in 1 week. Please follow up with cardiology in 2 weeks. Please make sure to slat pickler the medications with the prescription provided to you by cardiology. Return to the Emergency room with worsening symptoms. Diet: AHA Activity: Ad marilyn Followup: Dangelo Pantoja MD [ACTIVE - CAN ADMIT] - 1-2 Weeks (Please call clinic to schedule an appointment) Time spent managing pt's care (in minutes): 55
== END 2018-07-16 13:31 | disposition home or self-care (01) | DRG 247 ==
LOC: ER 12:02 → OBSVTOIN 13:48 → ERHOLD 13:48 → 2ND 15:06
PROVIDERS: ADMIT Family Medicine; ATTEND Family Medicine
PROC: 027034Z Dilation of Coronary Artery, One Artery with Drug-eluting Intraluminal Device, Percutaneous Approach (ICD-10-PCS; principal; 2018-07-15)
PROC: 02703ZZ Dilation of Coronary Artery, One Artery, Percutaneous Approach (ICD-10-PCS; 2018-07-15)
PROC: 4A023N7 Measurement of Cardiac Sampling and Pressure, Left Heart, Percutaneous Approach (ICD-10-PCS; 2018-07-15)
PROC: B211YZZ Fluoroscopy of Multiple Coronary Arteries using Other Contrast (ICD-10-PCS; 2018-07-15)
DX: I21.4 Non-ST elevation (NSTEMI) myocardial infarction (principal); I10 Essential (primary) hypertension; F17.210 Nicotine dependence, cigarettes, uncomplicated; Z91.14 Patient's other noncompliance with medication regimen; E78.5 Hyperlipidemia, unspecified; E66.3 Overweight; Z68.28 Body mass index [BMI] 28.0-28.9, adult; D72.828 Other elevated white blood cell count
CPT/HCPCS: 36415; 71045; 71275; 80048; 80061; 80076; 81003; 83735; 83880; 84484; 85025; 85347; 85379; 85610; 92928; 93005; 93306; 93454; 94760; 96361; 96374; 96375; 99285; C1725; C1760; C1893; G0378; J0583; J1650; J2250; J2405; J3010; J7030; Q9967

== ENCOUNTER 2018-12-06 10:46 | Emergency (ER) | payer OTHER ==
[2018-12-06] MEDS ORDERED: ONDANSETRON 4 MG/2 ML VIAL ONE (11:25)
[2018-12-06] MEDS ORDERED: NA CHLORIDE 0.9% 1,000 ML ONE (11:25)
[2018-12-06 11:35] LABS: Protime INR 1.02
[2018-12-06 11:39] LABS: Absolute Lymphocytes (CBC) 0.7 K/uL (0.7-4.9); Basophils % 0.2 % (0-1.3); Eosinophils % 0.7 % (0-4.4); Hematocrit 47.2 % (39.6-49.0); Lymphocytes % 5.9 % (15.3-44.8); MPV 10.1 fL (7.6-11.3); Monocytes % 4.5 % (3.3-12.3); RBC Red Blood Cell Count 5.05 M/uL (4.33-5.43)
[2018-12-06 11:49] LABS: ALT/SGPT 30 U/L (12-78); AST/SGOT 22 U/L (15-37); Albumin 4.1 g/dL (3.4-5.0); Alkaline Phosphatase 86 U/L (45-117); BUN Blood Urea Nitrogen 19 mg/dL (7-18); Bicarbonate 22 mmol/L (21-32); Bilirubin Direct 0.2 mg/dL (0-0.2); Bilirubin Total 0.6 mg/dL (0.2-1.0); Glucose Level 110 mg/dL (74-106); Lipase 72 U/L (73-393); Magnesium 2.1 mg/dL (1.8-2.4); NT PRO-BNP 139 pg/mL (<125); Potassium 4.1 mmol/L (3.5-5.1); Protein, Total 8.1 g/dL (6.4-8.2); Sodium Level 140 mmol/L (136-145); Troponin (Emerg Dept Use Only) < 0.02 ng/mL (0.0-0.045)
[2018-12-06 12:30] LABS: Blood Morphology Comment NOT SEEN (NOT SEEN); Platelet Estimate ADEQ
--- NOTE | 2018-12-06 12:36 | ER ---
Nurse's Notes [facility] Name: Rickey Rogel Age: 53 yrs Sex: Male : 1965 Arrival Date: 12/06/2018 Time: 10:47 Bed 6 Private MD: Diagnosis: Essential (primary) hypertension;Malaise and fatigue Presentation: 12/06 10:49 Presenting complaint: Patient states: This morning I started feeling body aches, la1 nausea, feeling hot. I had similar symptoms earlier this year when I needed a stent. Transition of care: patient was not received from another setting of care. Onset of symptoms was December 06, 2018. Risk Assessment: Do you want to hurt yourself or someone else? Patient reports no desire to harm self or others. Initial Sepsis Screen: Does the patient meet any 2 criteria? No. Patient's initial sepsis screen is negative. Does the patient have a suspected source of infection? No. Patient's initial sepsis screen is negative. Care prior to arrival: None. 10:49 Method Of Arrival: Wheelchair la1 10:49 Acuity: TIERNEY 2 la1 Triage Assessment: 11:08 General: Appears in no apparent distress. uncomfortable, Behavior is calm, cooperative, hj appropriate for age. Pain: Denies pain. GI: Reports nausea. Historical: - Allergies: 10:53 No Known Allergies; la1 - Home Meds: 10:53 atorvastatin 80 mg oral tab 1 tab once daily [Active]; aspirin 81 mg Oral TbEC 1 tab la1 every other day [Active]; clopidogrel 75 mg oral tab 1 tab once daily [Active]; bupropion HCl 150 mg Oral TbER 1 tab once daily [Active]; metoprolol tartrate 50 mg Oral tab 1 tab once daily [Active]; - PMHx: 10:53 Hypertension; la1 - PSHx: 10:53 Heart stents; la1 - Immunization history:: Adult Immunizations up to date. - Social history:: Smoking status: Patient uses tobacco products, Quit June this year. - Ebola Screening: : No symptoms or risks identified at this time. - Family history:: not pertinent. Screenin:08 Abuse screen: Denies threats or abuse. Denies injuries from another. Nutritional hj screening: No deficits noted. Tuberculosis screening: No symptoms or risk factors identified. Fall Risk None identified. Assessment: 11:08 GI: Abdomen is non-distended. hj 11:08 General: Appears in no apparent distress. uncomfortable, Behavior is calm, cooperative, hj appropriate for age. Pain: Denies pain. Neuro: Level of Consciousness is awake, alert, obeys commands, Oriented to person, place, time, situation, Appropriate for age. Cardiovascular: Capillary refill < 3 seconds Patient's skin is warm and dry. Respiratory: Airway is patent Respiratory effort is even, unlabored, Respiratory pattern is regular, symmetrical. : No signs and/or symptoms were reported regarding the genitourinary system. EENT: No signs and/or symptoms were reported regarding the EENT system. Derm: No signs and/or symptoms reported regarding the dermatologic system. Musculoskeletal: No signs and/or symptoms reported regarding the musculoskeletal system. Vital Signs: 10:53 BP 136 / 80; Pulse 86; Resp 16; Temp 98.6; Pulse Ox 98% on R/A; Weight 83.01 kg; Height la1 5 ft. 7 in. (170.18 cm); 11:35 BP 130 / 81; Pulse 85; Resp 18; Pulse Ox 100% on R/A; hj 12:10 BP 115 / 67; Pulse 79; Resp 18; Pulse Ox 99% on R/A; hj 12:55 BP 114 / 72; Pulse 71; Resp 18; Pulse Ox 100% on R/A; hj 10:53 Body Mass Index 28.66 (83.01 kg, 170.18 cm) la1 ED Course: 10:47 Patient arrived in ED. rg4 10:50 Triage completed. la1 10:53 Arm band placed on left wrist. la1 11:00 Tristan Philippe MD is Attending Physician. [facility] 11:00 Initial lab(s) drawn, by fl, sent to lab. Inserted saline lock: 20 gauge in right hj antecubital area, using aseptic technique. Blood collected. 11:06 Casey Shipman, MERCEDES is Primary Nurse. hj 11:08 Patient has correct armband on for positive identification. Placed in gown. Bed in low hj position. Call light in reach. Side rails up X 1. Adult w/ patient. 11:44 X-ray completed. Portable x-ray completed in exam room. Patient tolerated procedure tm4 well. 11:45 XRAY Chest (1 view) In Process Unspecified. EDVT 12:35 Dangelo Pantoja MD is Referral Physician. [facility] 12:55 No provider procedures requiring assistance completed. IV discontinued, intact, hj bleeding controlled, No redness/swelling at site. Pressure dressing applied. Administered Medications: 11:07 Drug: NS 0.9% 500 ml Route: IV; Rate: bolus; Site: right antecubital; hj 11:50 Follow up: IV Status: Completed infusion; IV Intake: 500ml hj 11: Drug: Zofran 4 mg Route: IVP; Site: right antecubital; hj 11:50 Follow up: Response: No adverse reaction hj 11:50 Follow up: Response: No adverse reaction; Nausea is decreased hj 11:25 Drug: NS 0.9% 1000 ml Route: IV; Rate: 125 ml/hr; Site: right antecubital; hj 11:51 Follow up: IV Status: Infusion continued hj 12:55 Follow up: IV Status: Completed infusion; Order to discontinue infusion; IV Intake: hj 600ml Intake: 11:50 IV: 500ml; Total: 500ml. hj 12:55 IV: 600ml; Total: 1100ml. hj Outcome: 12:35 Discharge ordered by . [facility] 12:56 Discharged to home ambulatory, with family. 12:56 Condition: stable 12:56 Discharge instructions given to patient, family, Instructed on discharge instructions, follow up and referral plans. Demonstrated understanding of instructions, follow-up care. 12:59 Patient left the ED. hj Signatures: Dispatcher [employer] [facility] Tristan Philippe MD MD cha Marroquin, Tracy tm4 Dany Myles RN RN la1 Casey Shipman, Mary Jason RN rg4
--- NOTE | 2018-12-06 12:36 | EDPHYS ---
Physician Documentation [facility] Name: Rickey Rogel Age: 53 yrs Sex: Male : 1965 Arrival Date: 12/06/2018 Time: 10:47 Bed 6 Private MD: ED Physician Tristan Philpipe HPI: 12/06 11:34 This 53 yrs old Male presents to ER via Wheelchair with complaints of Not lisa Feeling Well, Nausea. 11:34 The patient presents to the emergency department with nausea. Onset: The lisa symptoms/episode began/occurred 1 day(s) ago. Possible causes: unknown. The symptoms are aggravated by nothing. Associated signs and symptoms: The patient has no apparent associated signs or symptoms. Severity of symptoms: At their worst the symptoms were mild in the emergency department the symptoms are unchanged. The patient has not experienced similar symptoms in the past. Historical: - Allergies: 10:53 No Known Allergies; la1 - Home Meds: 10:53 atorvastatin 80 mg oral tab 1 tab once daily [Active]; aspirin 81 mg Oral TbEC 1 tab la1 every other day [Active]; clopidogrel 75 mg oral tab 1 tab once daily [Active]; bupropion HCl 150 mg Oral TbER 1 tab once daily [Active]; metoprolol tartrate 50 mg Oral tab 1 tab once daily [Active]; - PMHx: 10:53 Hypertension; la1 - PSHx: 10:53 Heart stents; la1 - Immunization history:: Adult Immunizations up to date. - Social history:: Smoking status: Patient uses tobacco products, Quit June this year. - Ebola Screening: : No symptoms or risks identified at this time. - Family history:: not pertinent. ROS: 11:34 Constitutional: Negative for fever, chills, and weight loss, Eyes: Negative for injury, lisa pain, redness, and discharge, ENT: Negative for injury, pain, and discharge, Neck: Negative for injury, pain, and swelling, Cardiovascular: Negative for chest pain, palpitations, and edema, Respiratory: Negative for shortness of breath, cough, wheezing, and pleuritic chest pain, Abdomen/GI: Negative for abdominal pain, nausea, vomiting, diarrhea, and constipation, Back: Negative for injury and pain, : Negative for injury, bleeding, discharge, and swelling, MS/Extremity: Negative for injury and deformity, Skin: Negative for injury, rash, and discoloration, Neuro: Negative for headache, weakness, numbness, tingling, and seizure, Psych: Negative for depression, anxiety, suicide ideation, homicidal ideation, and hallucinations, Allergy/Immunology: Negative for hives, rash, and allergies, Endocrine: Negative for neck swelling, polydipsia, polyuria, polyphagia, and marked weight changes, Hematologic/Lymphatic: Negative for swollen nodes, abnormal bleeding, and unusual bruising. Exam: 11:34 Constitutional: This is a well developed, well nourished patient who is awake, alert, lisa and in no acute distress. Head/Face: Normocephalic, atraumatic. Eyes: Pupils equal round and reactive to light, extra-ocular motions intact. Lids and lashes normal. Conjunctiva and sclera are non-icteric and not injected. Cornea within normal limits. Periorbital areas with no swelling, redness, or edema. ENT: Nares patent. No nasal discharge, no septal abnormalities noted. Tympanic membranes are normal and external auditory canals are clear. Oropharynx with no redness, swelling, or masses, exudates, or evidence of obstruction, uvula midline. Mucous membranes moist. Neck: Trachea midline, no thyromegaly or masses palpated, and no cervical lymphadenopathy. Supple, full range of motion without nuchal rigidity, or vertebral point tenderness. No Meningismus. Chest/axilla: Normal chest wall appearance and motion. Nontender with no deformity. No lesions are appreciated. Cardiovascular: Regular rate and rhythm with a normal S1 and S2. No gallops, murmurs, or rubs. Normal PMI, no JVD. No pulse deficits. Respiratory: Lungs have equal breath sounds bilaterally, clear to auscultation and percussion. No rales, rhonchi or wheezes noted. No increased work of breathing, no retractions or nasal flaring. Abdomen/GI: Soft, non-tender, with normal bowel sounds. No distension or tympany. No guarding or rebound. No evidence of tenderness throughout. Back: No spinal tenderness. No costovertebral tenderness. Full range of motion. Male : Normal genitalia with no discharge or lesions. Skin: Warm, dry with normal turgor. Normal color with no rashes, no lesions, and no evidence of cellulitis. MS/ Extremity: Pulses equal, no cyanosis. Neurovascular intact. Full, normal range of motion. Neuro: Awake and alert, GCS 15, oriented to person, place, time, and situation. Cranial nerves II-XII grossly intact. Motor strength 5/5 in all extremities. Sensory grossly intact. Cerebellar exam normal. Normal gait. Psych: Awake, alert, with orientation to person, place and time. Behavior, mood, and affect are within normal limits. 11:34 Musculoskeletal/extremity: DVT Exam: No signs of deep vein thrombosis. no pain, no swelling, no tenderness, negative Homans' sign noted on exam, no appreciated bluish discoloration, no erythema, no increased warmth. Vital Signs: 10:53 BP 136 / 80; Pulse 86; Resp 16; Temp 98.6; Pulse Ox 98% on R/A; Weight 83.01 kg; Height la1 5 ft. 7 in. (170.18 cm); 11:35 BP 130 / 81; Pulse 85; Resp 18; Pulse Ox 100% on R/A; hj 12:10 BP 115 / 67; Pulse 79; Resp 18; Pulse Ox 99% on R/A; hj 12:55 BP 114 / 72; Pulse 71; Resp 18; Pulse Ox 100% on R/A; hj 10:53 Body Mass Index 28.66 (83.01 kg, 170.18 cm) la1 MDM: 11:00 Patient medically screened. [facility] 11:36 Data reviewed: vital signs, nurses notes, lab test result(s), EKG, radiologic studies, lisa plain films. 12/06 11:03 Order name: Basic Metabolic Panel; Complete Time: 12:24 [facility] 12/06 11:03 Order name: CBC with Diff; Complete Time: 12:30 [facility] 12/06 11:03 Order name: LFT's; Complete Time: 12:24 [facility] 12/06 11:03 Order name: Magnesium; Complete Time: 12:24 [facility] 12/06 11:03 Order name: NT PRO-BNP; Complete Time: 12:24 [facility] 12/06 11:03 Order name: PT-INR; Complete Time: 12:24 [facility] 12/06 11:03 Order name: Troponin (emerg Dept Use Only); Complete Time: 12:24 [facility] 12/06 11:03 Order name: XRAY Chest (1 view) [facility] 12/06 11:03 Order name: Lipase; Complete Time: 12:24 [facility] 12/06 12:30 Order name: Manual Differential; Complete Time: 12:30 EDMS 12/06 11:03 Order name: EKG; Complete Time: : [facility] 12/06 11:03 Order name: Cardiac monitoring; Complete Time: 11: [facility] 12/06 11:03 Order name: EKG - Nurse/Tech; Complete Time: 11: [facility] 12/06 11:03 Order name: IV Saline Lock; Complete Time: : [facility] 12/06 11:03 Order name: Labs collected and sent; Complete Time: : [facility] 12/06 11:03 Order name: O2 Per Protocol; Complete Time: [facility] 12/06 11:03 Order name: O2 Sat Monitoring; Complete Time: [facility] Administered Medications: 11:07 Drug: NS 0.9% 500 ml Route: IV; Rate: bolus; Site: right antecubital; hj 11:50 Follow up: IV Status: Completed infusion; IV Intake: 500ml 11:07 Drug: Zofran 4 mg Route: IVP; Site: right antecubital; hj 11:50 Follow up: Response: No adverse reaction hj 11:50 Follow up: Response: No adverse reaction; Nausea is decreased hj 11:25 Drug: NS 0.9% 1000 ml Route: IV; Rate: 125 ml/hr; Site: right antecubital; hj 11:51 Follow up: IV Status: Infusion continued hj 12:55 Follow up: IV Status: Completed infusion; Order to discontinue infusion; IV Intake: hj 600ml Disposition: 12/06/18 12:35 Discharged to Home. Impression: Essential (primary) hypertension, Malaise and fatigue. - Condition is Stable. - Discharge Instructions: Hypertension, Weakness, Hypertension, [id number], Weakness, [id number], Managing Your Hypertension. - Medication Reconciliation Form, Thank You Letter, Antibiotic Education, Prescription Opioid Use form. - Follow up: Private Physician; When: 2 - 3 days; Reason: Recheck today's complaints, Continuance of care, Re-evaluation by your physician. Follow up: Dangelo Pantoja; When: 2 - 3 days; Reason: Recheck today's complaints, Continuance of care, Re-evaluation by your physician. - Problem is new. - Symptoms have improved. Signatures: Dispatcher [employer] EDMS Tristan Philippe MD MD cha Attema, Lee RN RN la1 Casey Shipman RN RN hj Corrections: (The following items were deleted from the chart) 12:59 12:35 12/06/2018 12:35 Discharged to Home. Impression: Essential (primary) hj hypertension; Malaise and fatigue. Condition is Stable. Discharge Instructions: Hypertension, Weakness, Hypertension, [id number], Weakness, [id number], Managing Your Hypertension. Forms are Medication Reconciliation Form, Thank You Letter, Antibiotic Education, Prescription Opioid Use. Follow up: Private Physician; When: 2 - 3 days; Reason: Recheck today's complaints, Continuance of care, Re-evaluation by your physician. Follow up: Dangelo Pantoja; When: 2 - 3 days; Reason: Recheck today's complaints, Continuance of care, Re-evaluation by your physician. Problem is new. Symptoms have improved. lisa
--- NOTE | 2018-12-06 12:52 | RAD REPORT ---
EXAM DESCRIPTION: RAD - Chest Single View - 12/06/2018 11:47 am CLINICAL HISTORY: Cough, abdominal pain, body aches COMPARISON: June 2018 TECHNIQUE: AP portable chest image was obtained 1142 hours . FINDINGS: Lungs are clear. Heart and vasculature are normal. No measurable pleural effusion and no p neumothorax. No acute bony abnormality seen. No acute aortic findings suspected. IMPRESSION: No acute cardiopulmonary process. No significant interval change.
--- NOTE | 2018-12-08 07:57 | EKG ---
Test Date: 2018-12-06 Test Time: 10:58:58 Crumb Packer: TARA MEASUREMENT RESULTS: Intervals: Rate: 71 MS: 170 QRSD: 68 QT: 384 QTc: 417 [place]: P: 63 MS: 170 QRS: 28 T: -23 INTERPRETIVE STATEMENTS: Normal sinus rhythm Nonspecific ST and T wave abnormality Abnormal ECG Compared to ECG 07/14/2018 19:19:06 ST (T wave) deviation now present T-wave abnormality no longer present Electronically Signed On 12-08-18 07:54:58 CDT by Mychal Cheung
== END 2018-12-06 12:59 | disposition home or self-care (01) ==
LOC: ER 10:46
DX: I10 Essential (primary) hypertension (principal); R53.81 Other malaise; R53.83 Other fatigue; Z79.82 Long term (current) use of aspirin; Z95.818 Presence of other cardiac implants and grafts
CPT/HCPCS: 36415; 71045; 80048; 80076; 83690; 83735; 83880; 84484; 85025; 85610; 93005; 96361; 96374; 99284; J2405; J7030

== ENCOUNTER 2021-10-04 10:25 | Emergency (ER) | payer OTHER, SELFPAY ==
--- OUTSIDE RECORDS SUMMARY | 2021-10-04 10:31 | XMS REPORT | Continuity of Care Document ---
:1965 Author Organization [facility] t Address [address] [place] [address] Care Team Providers Name Role Phone TIRSO BARRERA Primary Care Physician Unavailable CHRIS CARPENTER Attending Clinician Unavailable RADIOLOGY Attending Clinician Unavailable Radiology Attending Clinician Unavailable Doctor Unassigned, Name Attending Clinician Unavailable CARRERO Attending Clinician Unavailable Singer RUIZ Attending Clinician VERA Attending Clinician Unavailable Vera JUNG Attending Clinician Cassie OROURKE L Attending Clinician Cosme CHANDLER, S Attending Clinician Fifi VILLAR Attending Clinician Unavailable Jacquelin Carpenter MD Attending Clinician Only, Test Attending Clinician Unavailable Jacquelin CARPENTER Admitting Clinician Unavailable BENJI Admitting Clinician Unavailable CARRERO Admitting Clinician Unavailable Jacquelin Carpenter MD Admitting Clinician Payers Payer Name Policy Type Policy Number Effective Date Expiration Date Fifi munoz [employer] O [id number] 2019 00:00:00 Problems Condition Condition Condition Status Onset Resolution Last Treating Co mments Source Name Details Category Date Date Treatment Clinician Date Trigger Trigger Disease Active Overview: Univ ers thumb of thumb of 2-10 Formattin ity of right hand right hand 00:00: g of this [place] 00 note Medical might be Branch different from the original. Added automatic ally from request for surgery [id number] Chest pain Chest pain Disease Active U nivjp 6-21 ity of 00:00: [place] 00 Medical Branch Cholecysti Cholecysti Disease Active U nivers tis tis 12-05 ity of 00:00: [place] [facility] Branch Obesity Obesity Disease Active Univers 12-05 ity of 00:00: [place] [facility] HTN HTN Disease Active Univers (hypertens (hypertens 12-05 it y of ion) ion) 00:00: [place] [facility] HLD HLD Disease Active Univers (hyperlipi (hyperlipi 12-05 it y of demia) demia) 00:00: [place] [facility] Smoking Smoking Disease Active Univers 12-05 ity of 00:00: [place] [facility] Allergies, Adverse Reactions, Alerts Allergy Allergy Status Severity Reaction(s) Onset Inactive Treating Comm ents Source Name Type Date Date Clinician NO KNOWN Drug Active [facility] ALLERGIE Class ity of S [facility] Social History Social Habit Start Date Stop Date Quantity Comments Source Exposure to Not sure [facility] SARS-CoV-2 (event) [facility] Tobacco use and 2019-12-04 2019-12-04 Never used Universit y of exposure 00:00:00 00:00:00 [facility] Cigarettes smoked 2019-12-04 2019-12-04 Univers ity of current (pack per 00:00:00 00:00:00 [place] ) - Reported Branch History of tobacco 2018-07-14 Cigarette Smoker University of use 00:00:00 [facility] Sex [birth year] Universit y of 00:00:00 00:00:00 [facility] Smoking Status Start Date Stop Date Source Former smoker 2019-12-04 00:00:00 2019-12-04 00:00:00 Universi ty of [facility] Medications Ordered Filled Start Stop Current Ordering Indication Dosage Frequency Signature Comments Components Source Medication Medication Date Date Medication? Clinician (SIG) Name Name naproxen Yes [id number] 550mg Take 1 Univers sodium 3-03 tablet by ity of (ANAPROX 00:00: mouth 2 [place] DS) 550 mg 00 (two) Medical tablet times Branch daily with meals. methylPREDN Yes [id number] Take by Univers ISolone 3-03 mouth ity of (MEDROL, 00:00: SEE-INSTRU Yosef as HERBERTH,) 4 mg 00 CTIONS. Medica l tablets follow Branch package directions naproxen 2021-0 Yes [id number] 550mg Take 1 Univers sodium 3-03 tablet by ity of (ANAPROX 00:00: mouth 2 [place] DS) 550 mg 00 (two) Medical tablet times Branch daily with meals. methylPREDN 2021-0 Yes [id number] Take by Univers ISolone 3-03 mouth ity of (MEDROL, 00:00: SEE-INSTRU [place],) 4 mg 00 CTIONS. Medica l tablets follow Branch package directions naproxen 2021-0 Yes [id number] 550mg Take 1 Univers sodium 3-03 tablet by ity of (ANAPROX 00:00: mouth 2 [place] DS) 550 mg 00 (two) Medical tablet times Branch daily with meals. methylPREDN 2021-0 Yes [id number] Take by Univers ISolone 3-03 mouth ity of (MEDROL, 00:00: SEE-INSTRU [place],) 4 mg 00 CTIONS. Medica l tablets follow Branch package directions methocarbam 0 2021- Yes [id number] 500mg Take 1 Univers oL 500 mg 3-03 03-09 tablet by ity of tablet 00:00: 05:59 mouth 3 [place] 00 :00 (three) Medical times Branch daily for 5 days. prednisoLON Yes [id number] 1[drp] Place 1 Univers E acetate 1 4-13 [id number] Drop in ity of % 00:00: both eyes [place] ophthalmic 00 4 (four) Medic al suspension times Branch drops daily. prednisoLON Yes [id number] 1[drp] Place 1 Univers E acetate 1 4-13 [id number] Drop in ity of % 00:00: both eyes [place] ophthalmic 00 4 (four) Medic al suspension times Branch drops daily. prednisoLON Yes [id number] 1[drp] Place 1 Univers E acetate 1 4-13 [id number] Drop in ity of % 00:00: both eyes [place] ophthalmic 00 4 (four) Medic al suspension times Branch drops daily. prednisoLON Yes [id number] 1[drp] Place 1 Univers E acetate 1 4-13 [id number] Drop in ity of % 00:00: both eyes [place] ophthalmic 00 4 (four) Medic al suspension times Branch drops daily. prednisoLON Yes [id number] 1[drp] Place 1 Univers E acetate 1 4-13 [id number] Drop in ity of % 00:00: both eyes [place] ophthalmic 00 4 (four) Medic al suspension times Branch drops daily. prednisoLON Yes [id number] 1[drp] Place 1 Univers E acetate 1 4-13 [id number] Drop in ity of % 00:00: both eyes [place] ophthalmic 00 4 (four) Medic al suspension times Branch drops daily. prednisoLON Yes [id number] 1[drp] Place 1 Univers E acetate 1 4-13 [id number] Drop in ity of % 00:00: both eyes [place] ophthalmic 00 4 (four) Medic al suspension times Branch drops daily. prednisoLON Yes [id number] 1[drp] Place 1 Univers E acetate 1 4-13 [id number] Drop in ity of % 00:00: both eyes [place] ophthalmic 00 4 (four) Medic al suspension times Branch drops daily. prednisoLON Yes [id number] 1[drp] Place 1 Univers E acetate 1 4-13 [id number] Drop in ity of % 00:00: both eyes [place] ophthalmic 00 4 (four) Medic al suspension times Branch drops daily. moxifloxaci 2020- No 1[drp] 1 Drop, Univers n (VIGAMOX) 09-26 04-12 Both Eyes, i ty of 0.5 % 05:00: 04:52 ONCE NOW, [place] ophthalmic 00 :00 1 dose, Medica l drops 1 Mon Branch Drop 09/26/20 at 0000, PHYLICIA moxifloxaci Yes [id number] 1[drp] Place 1 Univers n 0.5 % 09-25 9104 Drop in ity of ophthalmic 00:00: [place] eyes [place] drops 00 4 (four) Medical times Branch daily. erythromyci Yes [id number] .5[in_u Place 0.5 Univers n 5 mg/gram -11 9104 s] Inches in ity of (0.5 %) 00:00: both eyes [place] ophthalmic 00 4 (four) Medic al ointment times Branch daily. moxifloxaci Yes [id number] 1[drp] Place 1 Univers n 0.5 % 4-11 9104 Drop in ity of ophthalmic 00:00: [place] eyes [place] drops 00 4 (four) Medical times Branch daily. erythromyci Yes [id number] .5[in_u Place 0.5 Univers n 5 mg/gram 4-11 9104 s] Inches in ity of (0.5 %) 00:00: both eyes [place] ophthalmic 00 4 (four) Medic al ointment times Branch daily. moxifloxaci Yes [id number] 1[drp] Place 1 Univers n 0.5 % 4-11 9104 Drop in ity of ophthalmic 00:00: [place] eyes [place] drops 00 4 (four) Medical times Branch daily. erythromyci Yes [id number] .5[in_u Place 0.5 Univers n 5 mg/gram 4-11 9104 s] Inches in ity of (0.5 %) 00:00: both eyes [place] ophthalmic 00 4 (four) Medic al ointment times Branch daily. moxifloxaci Yes [id number] 1[drp] Place 1 Univers n 0.5 % 4-11 9104 Drop in ity of ophthalmic 00:00: [place] eyes [place] drops 00 4 (four) Medical times Branch daily. erythromyci Yes [id number] .5[in_u Place 0.5 Univers n 5 mg/gram 4-11 9104 s] Inches in ity of (0.5 %) 00:00: both eyes [place] ophthalmic 00 4 (four) Medic al ointment times Branch daily. moxifloxaci Yes [id number] 1[drp] Place 1 Univers n 0.5 % 4-11 9104 Drop in ity of ophthalmic 00:00: [place] eyes [place] drops 00 4 (four) Medical times Branch daily. erythromyci Yes [id number] .5[in_u Place 0.5 Univers n 5 mg/gram 4-11 9104 s] Inches in ity of (0.5 %) 00:00: both eyes [place] ophthalmic 00 4 (four) Medic al ointment times Branch daily. moxifloxaci Yes [id number] 1[drp] Place 1 Univers n 0.5 % 4-11 9104 Drop in ity of ophthalmic 00:00: [place] eyes [place] drops 00 4 (four) Medical times Branch daily. erythromyci Yes [id number] .5[in_u Place 0.5 Univers n 5 mg/gram 4-11 9104 s] Inches in ity of (0.5 %) 00:00: both eyes [place] ophthalmic 00 4 (four) Medic al ointment times Branch daily. moxifloxaci Yes [id number] 1[drp] Place 1 Univers n 0.5 % 4-11 9104 Drop in ity of ophthalmic 00:00: both eyes [place] drops 00 4 (four) Medical times Branch daily. erythromyci Yes [id number] .5[in_u Place 0.5 Univers n 5 mg/gram 4-11 9104 s] Inches in ity of (0.5 %) 00:00: both eyes [place] ophthalmic 00 4 (four) Medic al ointment times Branch daily. moxifloxaci Yes [id number] 1[drp] Place 1 Univers n 0.5 % 4-11 9104 Drop in ity of ophthalmic 00:00: both eyes [place] drops 00 4 (four) Medical times Branch daily. erythromyci Yes [id number] .5[in_u Place 0.5 Univers n 5 mg/gram 4-11 9104 s] Inches in ity of (0.5 %) 00:00: both eyes [place] ophthalmic 00 4 (four) Medic al ointment times Branch daily. moxifloxaci Yes [id number] 1[drp] Place 1 Univers n 0.5 % 4-11 9104 Drop in ity of ophthalmic 00:00: both eyes [place] drops 00 4 (four) Medical times Branch daily. erythromyci Yes [id number] .5[in_u Place 0.5 Univers n 5 mg/gram 4-11 9104 s] Inches in ity of (0.5 %) 00:00: both eyes [place] ophthalmic 00 4 (four) Medic al ointment times Branch daily. moxifloxaci Yes [id number] 1[drp] Place 1 Univers n 0.5 % 09-25 9104 Drop in ity of ophthalmic 00:00: both eyes [place] drops 00 4 (four) Medical times Branch daily. erythromyci Yes [id number] .5[in_u Place 0.5 Univers n 5 mg/gram 09-25 9104 s] Inches in ity of (0.5 %) 00:00: both eyes [place] ophthalmic 00 4 (four) Medic al ointment times Branch daily. ATORVASTATI Yes Take by Un cristiano N CALCIUM 2-22 mouth. ity of (ATORVASTAT 20:55: [place] IN ORAL) Medical Branch TERESITA Yes Take by Univers ASPIRIN 2-22 mouth. ity of ORAL 20:55: [place] [facility] ATORVASTATI Yes Take by Un cristiano N CALCIUM 2-22 mouth. ity of (ATORVASTAT 20:55: [place] IN ORAL) [facility] TERESITA Yes Take by Univers ASPIRIN 2-22 mouth. ity of ORAL 20:55: [place] [facility] ATORVASTATI Yes Take by Un cristiano N CALCIUM 2-22 mouth. ity of (ATORVASTAT 20:55: [place] IN ORAL) Medical Branch TERESITA Yes Take by Univers ASPIRIN 2-22 mouth. ity of ORAL 20:55: [place] [facility] ATORVASTATI Yes Take by Un cristiano N CALCIUM 2-22 mouth. ity of (ATORVASTAT 20:55: [place] IN ORAL) Medical Branch TERESITA Yes Take by Univers ASPIRIN 2-22 mouth. ity of ORAL 20:55: [place] [facility] ATORVASTATI Yes Take by Un cristiano N CALCIUM 2-22 mouth. ity of (ATORVASTAT 20:55: [place] IN ORAL) Medical Branch TERESITA Yes Take by Univers ASPIRIN 2-22 mouth. ity of ORAL 20:55: [place] [facility] ATORVASTATI Yes Take by Un cristiano N CALCIUM 2-22 mouth. ity of (ATORVASTAT 20:55: [place] IN ORAL) Medical Branch TERESITA Yes Take by Univers ASPIRIN 2-22 mouth. ity of ORAL 20:55: [place] [facility] ATORVASTATI Yes Take by Un cristiano N CALCIUM 2-22 mouth. ity of (ATORVASTAT 20:55: [place] IN ORAL) Medical Branch TERESITA Yes Take by Univers ASPIRIN 2-22 mouth. ity of ORAL 20:55: [place] [facility] Branch ATORVASTATI Yes Take by Un cristiano N CALCIUM 2-22 mouth. ity of (ATORVASTAT 20:55: [place] IN ORAL) Medical Branch TERESITA Yes Take by Univers ASPIRIN 2-22 mouth. ity of ORAL 20:55: [place] [facility] ATORVASTATI Yes Take by Un cristiano N CALCIUM 2-22 mouth. ity of (ATORVASTAT 20:55: [place] IN ORAL) Medical Branch TERESITA Yes Take by Univers ASPIRIN 2-22 mouth. ity of ORAL 20:55: [place] [address] Medical Branch ATORVASTATI Yes Take by Un cristiano N CALCIUM 2-22 mouth. ity of (ATORVASTAT 20:55: [place] IN ORAL) Medical Branch TERESITA Yes Take by Univers ASPIRIN 2-22 mouth. ity of ORAL 20:55: [place] [address] Medical Branch ATORVASTATI Yes Take by Un cristiano N CALCIUM 2-22 mouth. ity of (ATORVASTAT 20:55: [place] IN ORAL) Medical Branch TERESITA Yes Take by Univers ASPIRIN 2-22 mouth. ity of ORAL 20:55: [place] Medical Branch ATORVASTATI Yes Take by Un cristiano N CALCIUM 2-22 mouth. ity of (ATORVASTAT 20:55: [place] IN ORAL) Medical Branch TERESITA Yes Take by Univers ASPIRIN 2-22 mouth. ity of ORAL 20:55: [place] Medical Branch ATORVASTATI Yes Take by Un cristiano N CALCIUM 2-22 mouth. ity of (ATORVASTAT 20:55: [place] IN ORAL) Medical Branch TERESITA Yes Take by Univers ASPIRIN 2-22 mouth. ity of ORAL 20:55: [place] [address] [place] [address] Branch lactated Yes 1000mL at 75 Univer s ringers IV 2-22 mL/hr, ity of infusion 20:15: 1,000 mL, [place] 1,000 mL 00 IV Medical Infusion, Branch CONTINUOUS , Starting 08/08/20 at 1415, Until Discontinu ed, Routine, PACU FENTanyl PF 2020- Yes 25ug 25 mcg, Uni vers (SUBLIMAZE 2-22 Slow IV ity of (PF)) 20:01: Push, [place] injection 05 Q5MIN PRN, Medi negar 25 mcg 4 doses, Branch Starting 08/08/20 at 1401, Until Discontinu ed, Routine, Pain (scale 4-6), PACU ondansetron Yes 4mg 4 mg, Slow Univers (ZOFRAN 2- IV Push, ity of (PF)) 20:01: PRN, 1 [place] injection 4 05 dose, Medical mg Starting Branch 08/08/20 at 1401, Until Discontinu ed, Routine, Nausea and Vomiting (N/V), PACU bupivacaine Yes PRN, Univer s (preserv 08-08 Starting ity of free) 19:28: Mon [place] (SENSORCAIN 00 08/08/20 at Md dicwy E MPF) 0.25 1328, Branch % (2.5 Until mg/mL) Discontinu injection ed, Routine, Intra-op lactated 2020- No 1000mL at 42 Unive rs ringers IV 2-22 02-22 mL/hr, ity of infusion 16:45: 16:47 1,000 mL, [place] 1,000 mL 00 :00 IV Medical Infusion, Branch ONCE, 1 dose, 08/08/20 at 1045, Routine, DSU Pre-op ATORVASTATI Yes Take by Un cristiano N CALCIUM 2-22 mouth. ity of (ATORVASTAT 14:55: [place] IN ORAL) [facility] TERESITA 0 Yes Take by [facility] ASPIRIN 2-22 mouth. ity of ORAL 14:55: [place] [facility] ATORVASTATI 0 Yes Take by Un cristiano N CALCIUM 2-22 mouth. ity of (ATORVASTAT 14:55: [place] IN ORAL) 06 [facility] TERESITA 0 Yes Take by [facility] ASPIRIN 2-22 mouth. ity of ORAL 14:55: [place] Medical Branch ATORVASTATI Yes Take by Un cristiano N CALCIUM 2-22 mouth. ity of (ATORVASTAT 14:55: [place] IN ORAL) Medical Branch TERESITA 0 Yes Take by Univers ASPIRIN 2-22 mouth. ity of ORAL 14:55: [place] [facility] ATORVASTATI Yes Take by Un cristiano N CALCIUM 2-22 mouth. ity of (ATORVASTAT 14:55: [place] IN ORAL) Medical Branch TERESITA 0 Yes Take by Univers ASPIRIN 2-22 mouth. ity of ORAL 14:55: [address] Branch acetaminoph Yes 4647 1{tbl} Take 1 Un cristiano en-codeine 2-22 tablet by ity of (TYLENOL-CO 00:00: mouth [place] DEINE #3) 00 every 4 Medical 300-30 mg (four) Branch tablet hours as needed for Pain (scale 4-6) or Pain (scale 7-10). Indication s: acute pain acetaminoph 2020-0 Yes 4647 1{tbl} Take 1 Un cristiano en-codeine 2-22 tablet by ity of (TYLENOL-CO 00:00: mouth [place] DEINE #3) 00 every 4 Medical 300-30 mg (four) Branch tablet hours as needed for Pain (scale 4-6) or Pain (scale 7-10). Indication s: acute pain acetaminoph 2020-0 Yes 4647 1{tbl} Take 1 Un cristiano en-codeine 2-22 tablet by ity of (TYLENOL-CO 00:00: mouth [place] DEINE #3) 00 every 4 Medical 300-30 mg (four) Branch tablet hours as needed for Pain (scale 4-6) or Pain (scale 7-10). Indication s: acute pain acetaminoph 2020-0 Yes 4647 1{tbl} Take 1 Un cristiano en-codeine 2-22 tablet by ity of (TYLENOL-CO 00:00: mouth [place] DEINE #3) 00 every 4 Medical 300-30 mg (four) Branch tablet hours as needed for Pain (scale 4-6) or Pain (scale 7-10). Indication s: acute pain acetaminoph 2020-0 Yes 4647 1{tbl} Take 1 Un cristiano en-codeine 2-22 tablet by ity of (TYLENOL-CO 00:00: mouth [place] DEINE #3) 00 every 4 Medical 300-30 mg (four) Branch tablet hours as needed for Pain (scale 4-6) or Pain (scale 7-10). Indication s: acute pain acetaminoph 2021-0 Yes 4647 1{tbl} Take 1 Un cristiano en-codeine 2-22 tablet by ity of (TYLENOL-CO 00:00: mouth [place] DEINE #3) 00 every 4 Medical 300-30 mg (four) Branch tablet hours as needed for Pain (scale 4-6) or Pain (scale 7-10). Indication s: acute pain acetaminoph 2021-0 Yes 4647 1{tbl} Take 1 Un cristiano en-codeine 2-22 tablet by ity of (TYLENOL-CO 00:00: mouth [place] DEINE #3) 00 every 4 Medical 300-30 mg (four) Branch tablet hours as needed for Pain (scale 4-6) or Pain (scale 7-10). Indication s: acute pain acetaminoph 2021-0 Yes 4647 1{tbl} Take 1 Un cristiano en-codeine 2-22 tablet by ity of (TYLENOL-CO 00:00: mouth [place] DEINE #3) 00 every 4 Medical 300-30 mg (four) Branch tablet hours as needed for Pain (scale 4-6) or Pain (scale 7-10). Indication s: acute pain acetaminoph 2021-0 Yes 4647 1{tbl} Take 1 Un cristiano en-codeine 2-22 tablet by ity of (TYLENOL-CO 00:00: mouth [place] DEINE #3) 00 every 4 Medical 300-30 mg (four) Branch tablet hours as needed for Pain (scale 4-6) or Pain (scale 7-10). Indication s: acute pain acetaminoph 2021-0 Yes 4647 1{tbl} Take 1 Un cristiano en-codeine 2-22 tablet by ity of (TYLENOL-CO 00:00: mouth [place] DEINE #3) 00 every 4 Medical 300-30 mg (four) Branch tablet hours as needed for Pain (scale 4-6) or Pain (scale 7-10). Indication s: acute pain acetaminoph 2021-0 Yes 4647 1{tbl} Take 1 Un cristiano en-codeine 2-22 tablet by ity of (TYLENOL-CO 00:00: mouth [place] DEINE #3) 00 every 4 Medical 300-30 mg (four) Branch tablet hours as needed for Pain (scale 4-6) or Pain (scale 7-10). Indication s: acute pain acetaminoph 2021-0 Yes 4647 1{tbl} Take 1 Un cristiano en-codeine 2-22 tablet by ity of (TYLENOL-CO 00:00: mouth [place] DEINE #3) 00 every 4 Medical 300-30 mg (four) Branch tablet hours as needed for Pain (scale 4-6) or Pain (scale 7-10). Indication s: acute pain acetaminoph 2021-0 Yes 4647 1{tbl} Take 1 Un cristiano en-codeine 2-22 tablet by ity of (TYLENOL-CO 00:00: mouth [place] DEINE #3) 00 every 4 Medical 300-30 mg (four) Branch tablet hours as needed for Pain (scale 4-6) or Pain (scale 7-10). Indication s: acute pain acetaminoph 2021-0 Yes 4647 1{tbl} Take 1 Un cristiano en-codeine 2-22 tablet by ity of (TYLENOL-CO 00:00: mouth [place] DEINE #3) 00 every 4 Medical 300-30 mg (four) Branch tablet hours as needed for Pain (scale 4-6) or Pain (scale 7-10). Indication s: acute pain acetaminoph 2021-0 Yes 4647 1{tbl} Take 1 Un cristiano en-codeine 2-22 tablet by ity of (TYLENOL-CO 00:00: mouth [place] DEINE #3) 00 every 4 Medical 300-30 mg (four) Branch tablet hours as needed for Pain (scale 4-6) or Pain (scale 7-10). Indication s: acute pain methylPREDN 2021-0 Yes [id number] 84mg Take 21 Univers ISolone 1-29 9105 tablets by ity of (MEDROL, 00:00: mouth [place] HERBERTH,) 4 mg 00 SEE-INSTRU Med ical tablets CTIONS. Branch follow package directions methylPREDN 2021-0 Yes [id number] 84mg Take 21 Univers ISolone 1-29 9105 tablets by ity of (MEDROL, 00:00: mouth [place] HERBERTH,) 4 mg 00 SEE-INSTRU Med ical tablets CTIONS. Branch follow package directions methylPREDN 2020-0 Yes [id number] 84mg Take 21 Univers ISolone 1-29 9105 tablets by ity of (MEDROL, 00:00: mouth [place] HER[place]TH,) 4 mg 00 SEE-INSTRU Med ical tablets CTIONS. Branch follow package directions methylPREDN 2020-0 Yes [id number] 84mg Take 21 Univers ISolone 1-29 9105 tablets by ity of (MEDROL, 00:00: mouth [place] HER[place]TH,) 4 mg 00 SEE-INSTRU Med ical tablets CTIONS. Branch follow package directions methylPREDN 2020-0 Yes [id number] 84mg Take 21 Univers ISolone 1-29 9105 tablets by ity of (MEDROL, 00:00: mouth [place] HERBERTH,) 4 mg 00 SEE-INSTRU Med ical tablets CTIONS. Branch follow package directions methylPREDN 2020-0 Yes [id number] 84mg Take 21 Univers ISolone 1-29 9105 tablets by ity of (MEDROL, 00:00: mouth [place] HER[place]TH,) 4 mg 00 SEE-INSTRU Med ical tablets CTIONS. Branch follow package directions methylPREDN 2020-0 Yes [id number] 84mg Take 21 Univers ISolone 1-29 9105 tablets by ity of (MEDROL, 00:00: mouth [place] HER[place]TH,) 4 mg 00 SEE-INSTRU Med ical tablets CTIONS. Branch follow package directions methylPREDN 2020-0 Yes [id number] 84mg Take 21 Univers ISolone 1-29 9105 tablets by ity of (MEDROL, 00:00: mouth [place] HERBERTH,) 4 mg 00 SEE-INSTRU Med ical tablets CTIONS. Branch follow package directions methylPREDN 2020-0 2021- No [id number] 84mg Take 21 Univers ISolone 1-29 - 9105 tablets by ity o f (MEDROL, 00:00: 00:00 mouth [place] HERBERTH,) 4 mg 00 :00 SEE-INSTRU Med ical tablets CTIONS. Branch follow package directions triamcinolo 2019-0 2020- No 16mg Unive rs ne 12-03 ity of acetonide 16:30: 15:24 [place] (KENALOG) 00 :00 Medical injection Branch 16 mg triamcinolo 2020-0 2020- No 16mg 16 mg, Uni vers ne 12-03 Intra-radha ity of acetonide 16:30: 15:24 [place] (KENALOG) 00 :00 ONCE, 1 Medical injection dose, Fri Branc h 16 mg 12/04/19 at 1130, Routine triamcinolo 2019-0 2020- No 16mg Unive rs ne 12-03 ity of acetonide 16:30: 15:24 [place] (KENALOG) 00 :00 Medical injection Branch 16 mg triamcinolo 2020-0 2020- No 16mg 16 mg, Uni vers ne 12-03 Intra-radha ity of acetonide 16:30: 15:24 [place] (KENALOG) 00 :00 ONCE, 1 Medical injection dose, Fri Branc h 16 mg 12/04/19 at 1130, Routine TERESITA 0 Yes Take by Univers ASPIRIN 6-19 mouth. ity of ORAL 14:48: [place] [address] Medical Branch ATORVASTATI 0 Yes Take by Un cristiano N CALCIUM 6-19 mouth. ity of (ATORVASTAT 14:48: [place] IN ORAL) Medical Branch TERESITA 0 Yes Take by Univers ASPIRIN 6-19 mouth. ity of ORAL 14:48: [address] Branch ATORVASTATI 0 Yes Take by Un cristiano N CALCIUM 6-19 mouth. ity of (ATORVASTAT 14:48: [place] IN ORAL) Medical Branch TERESITA 0 Yes Take by Univers ASPIRIN 6-19 mouth. ity of ORAL 14:48: [place] [address] Medical Branch ATORVASTATI 2019-0 Yes Take by Un cristiano N CALCIUM 6-19 mouth. ity of (ATORVASTAT 14:48: [place] IN ORAL) 56 Medical Branch TERESITA 2020-0 Yes Take by Univers ASPIRIN 6-19 mouth. ity of ORAL 14:48: [place] [address] Medical Branch ATORVASTATI 2019-0 Yes Take by Un cristiano N CALCIUM 6-19 mouth. ity of (ATORVASTAT 14:48: [place] IN ORAL) 56 Medical Branch TERESITA 2019-0 Yes Take by Univers ASPIRIN 6-19 mouth. ity of ORAL 14:48: [place] 56 Medical Branch ATORVASTATI 2019-0 Yes Take by Un cristiano N CALCIUM 6-19 mouth. ity of (ATORVASTAT 14:48: [place] IN ORAL) 56 Medical Branch TERESITA 2019-0 Yes Take by Univers ASPIRIN 6-19 mouth. ity of ORAL 14:48: [place] 56 Medical Branch ATORVASTATI 2019-0 Yes Take by Un cristiano N CALCIUM 6-19 mouth. ity of (ATORVASTAT 14:48: [place] IN ORAL) 56 Medical Branch TERESITA 2019-0 Yes Take by Univers ASPIRIN 6-19 mouth. ity of ORAL 14:48: [place] 56 Medical Branch ATORVASTATI 2019-0 Yes Take by Un cristiano N CALCIUM 6-19 mouth. ity of (ATORVASTAT 14:48: [place] IN ORAL) 56 Medical Branch TERESITA 2019-0 Yes Take by Univers ASPIRIN 6-19 mouth. ity of ORAL 14:48: [place] [address] Medical Branch ATORVASTATI 0 Yes Take by Un cristiano N CALCIUM 6-19 mouth. ity of (ATORVASTAT 14:48: [place] IN ORAL) 56 Medical Branch TERESITA 0 Yes Take by Univers ASPIRIN 6-19 mouth. ity of ORAL 14:48: [place] 56 Medical Branch ATORVASTATI 0 Yes Take by Un cristiano N CALCIUM 6-19 mouth. ity of (ATORVASTAT 14:48: [place] IN ORAL) 56 Medical Branch TERESITA 2019-0 Yes Take by Univers ASPIRIN 6-19 mouth. ity of ORAL 14:48: [place] [address] Medical Branch ATORVASTATI 0 Yes Take by Un cristiano N CALCIUM 6-19 mouth. ity of (ATORVASTAT 14:48: [place] IN ORAL) 56 Medical Branch losartan 50 2019-0 Yes 100mg Take 100 U nivers mg tablet 5-21 mg by ity of 00:00: mouth [place] 00 daily. Medical Branch hydroCHLORO 2020-0 Yes 12.5mg Take 12.5 Univers thiazide 5-21 mg by ity of 12.5 mg 00:00: mouth [place] tablet 00 daily. Medical Branch losartan 50 2020-0 Yes 100mg Take 100 U nivers mg tablet 5-21 mg by ity of 00:00: mouth [place] 00 daily. [facility] Branch hydroCHLORO 2020-0 Yes 12.5mg Take 12.5 Univers thiazide 5-21 mg by ity of 12.5 mg 00:00: mouth [place] tablet 00 daily. [facility] losartan 50 2020-0 Yes 100mg Take 100 U nivers mg tablet 5-21 mg by ity of 00:00: mouth [place] 00 daily. [facility] hydroCHLORO 2020-0 Yes 12.5mg Take 12.5 [facility] thiazide 5-21 mg by ity of 12.5 mg 00:00: mouth [place] tablet 00 daily. [facility] losartan 50 2020-0 Yes 100mg Take 100 U nivers mg tablet 5-21 mg by ity of 00:00: mouth [place] 00 daily. [facility] hydroCHLORO 2020-0 Yes 12.5mg Take 12.5 [facility] thiazide 5-21 mg by ity of 12.5 mg 00:00: mouth [place] tablet 00 daily. [facility] losartan 50 2020-0 Yes 100mg Take 100 U nivers mg tablet 5-21 mg by ity of 00:00: mouth [place] 00 daily. [facility] hydroCHLORO 2020-0 Yes 12.5mg Take 12.5 [facility] thiazide 5-21 mg by ity of 12.5 mg 00:00: mouth [place] tablet 00 daily. [facility] losartan 50 2020-0 Yes 100mg Take 100 U nivers mg tablet 5-21 mg by ity of 00:00: mouth [place] 00 daily. [facility] hydroCHLORO 2020-0 Yes 12.5mg Take 12.5 [facility] thiazide 5-21 mg by ity of 12.5 mg 00:00: mouth [place] tablet 00 daily. [facility] losartan 50 2020-0 Yes 100mg Take 100 U nivers mg tablet 5-21 mg by ity of 00:00: mouth [place] 00 daily. [facility] hydroCHLORO 2020-0 Yes 12.5mg Take 12.5 [facility] thiazide 5-21 mg by ity of 12.5 mg 00:00: mouth [place] tablet 00 daily. [facility] losartan 50 2020-0 Yes 100mg Take 100 U nivers mg tablet 5-21 mg by ity of 00:00: mouth [place] 00 daily. [facility] hydroCHLORO 2020-0 Yes 12.5mg Take 12.5 [facility] thiazide 5-21 mg by ity of 12.5 mg 00:00: mouth [place] tablet 00 daily. [facility] losartan 50 2020-0 Yes 100mg Take 100 U nivers mg tablet 5-21 mg by ity of 00:00: mouth [place] 00 daily. [facility] hydroCHLORO 2020-0 Yes 12.5mg Take 12.5 [facility] thiazide 5-21 mg by ity of 12.5 mg 00:00: mouth [place] tablet 00 daily. [facility] losartan 50 2020-0 Yes 100mg Take 100 U nivers mg tablet 5-21 mg by ity of 00:00: mouth [place] 00 daily. [facility] hydroCHLORO 2020-0 Yes 12.5mg Take 12.5 [facility] thiazide 5-21 mg by ity of 12.5 mg 00:00: mouth [place] tablet 00 daily. [facility] losartan 50 2020-0 Yes 100mg Take 100 U nivers mg tablet 5-21 mg by ity of 00:00: mouth [place] 00 daily. [facility] hydroCHLORO 2020-0 Yes 12.5mg Take 12.5 [facility] thiazide 5-21 mg by ity of 12.5 mg 00:00: mouth [place] tablet 00 daily. [facility] losartan 50 2020-0 Yes 100mg Take 100 U nivers mg tablet 5-21 mg by ity of 00:00: mouth [place] 00 daily. [facility] hydroCHLORO 2020-0 Yes 12.5mg Take 12.5 [facility] thiazide 5-21 mg by ity of 12.5 mg 00:00: mouth [place] tablet 00 daily. [facility] losartan 50 2020-0 Yes 100mg Take 100 U nivers mg tablet 5-21 mg by ity of 00:00: mouth [place] 00 daily. [facility] hydroCHLORO 2020-0 Yes 12.5mg Take 12.5 [facility] thiazide 5-21 mg by ity of 12.5 mg 00:00: mouth [place] tablet 00 daily. [facility] losartan 50 2020-0 Yes 100mg Take 100 U nivers mg tablet 5-21 mg by ity of 00:00: mouth [place] 00 daily. [facility] hydroCHLORO 2020-0 Yes 12.5mg Take 12.5 [facility] thiazide 5-21 mg by ity of 12.5 mg 00:00: mouth [place] tablet 00 daily. [facility] losartan 50 2020-0 Yes 100mg Take 100 U nivers mg tablet 5-21 mg by ity of 00:00: mouth [place] 00 daily. [facility] hydroCHLORO 2020-0 Yes 12.5mg Take 12.5 [facility] thiazide 5-21 mg by ity of 12.5 mg 00:00: mouth [place] tablet 00 daily. [facility] losartan 50 2020-0 Yes 100mg Take 100 U nivers mg tablet 5-21 mg by ity of 00:00: mouth [place] 00 daily. [facility] hydroCHLORO 2020-0 Yes 12.5mg Take 12.5 [facility] thiazide 5-21 mg by ity of 12.5 mg 00:00: mouth [place] tablet 00 daily. [facility] losartan 50 2020-0 Yes 100mg Take 100 U nivers mg tablet 5-21 mg by ity of 00:00: mouth [place] 00 daily. [facility] hydroCHLORO 2020-0 Yes 12.5mg Take 12.5 [facility] thiazide 5-21 mg by ity of 12.5 mg 00:00: mouth [place] tablet 00 daily. [facility] losartan 50 2020-0 Yes 100mg Take 100 U nivers mg tablet 5-21 mg by ity of 00:00: mouth [place] 00 daily. [facility] hydroCHLORO 2020-0 Yes 12.5mg Take 12.5 Univers thiazide 5-21 mg by ity of 12.5 mg 00:00: mouth [place] tablet 00 daily. [facility] losartan 50 2020-0 Yes 100mg Take 100 U nivers mg tablet 5-21 mg by ity of 00:00: mouth [place] 00 daily. [facility] hydroCHLORO 2020-0 Yes 12.5mg Take 12.5 Univers thiazide 5-21 mg by ity of 12.5 mg 00:00: mouth [place] tablet 00 daily. [facility] losartan 50 2020-0 Yes 100mg Take 100 U nivers mg tablet 5-21 mg by ity of 00:00: mouth [place] 00 daily. [facility] hydroCHLORO 2020-0 Yes 12.5mg Take 12.5 Univers thiazide 5-21 mg by ity of 12.5 mg 00:00: mouth [place] tablet 00 daily. [facility] losartan 50 2020-0 Yes 100mg Take 100 U nivers mg tablet 5-21 mg by ity of 00:00: mouth [place] 00 daily. [facility] hydroCHLORO 2020-0 Yes 12.5mg Take 12.5 Univers thiazide 5-21 mg by ity of 12.5 mg 00:00: mouth [place] tablet 00 daily. [facility] losartan 50 2020-0 Yes 100mg Take 100 U nivers mg tablet 5-21 mg by ity of 00:00: mouth [place] 00 daily. [facility] hydroCHLORO 2020-0 Yes 12.5mg Take 12.5 Univers thiazide 5-21 mg by ity of 12.5 mg 00:00: mouth [place] tablet 00 daily. [facility] losartan 50 2020-0 Yes 100mg Take 100 U nivers mg tablet 5-21 mg by ity of 00:00: mouth [place] 00 daily. [facility] hydroCHLORO 2020-0 Yes 12.5mg Take 12.5 Univers thiazide 5-21 mg by ity of 12.5 mg 00:00: mouth [place] tablet 00 daily. [facility] losartan 50 2020-0 Yes 100mg Take 100 U nivers mg tablet 5-21 mg by ity of 00:00: mouth [place] 00 daily. [facility] hydroCHLORO 2020-0 Yes 12.5mg Take 12.5 Univers thiazide 5-21 mg by ity of 12.5 mg 00:00: mouth [place] tablet 00 daily. [facility] losartan 50 2020-0 Yes 100mg Take 100 U nivers mg tablet 5-21 mg by ity of 00:00: mouth [place] 00 daily. [facility] hydroCHLORO 2020-0 Yes 12.5mg Take 12.5 Univers thiazide 5-21 mg by ity of 12.5 mg 00:00: mouth [place] tablet 00 daily. [facility] losartan 50 2020-0 Yes 100mg Take 100 U nivers mg tablet 5-21 mg by ity of 00:00: mouth [place] 00 daily. [facility] hydroCHLORO 2020-0 Yes 12.5mg Take 12.5 Univers thiazide 5-21 mg by ity of 12.5 mg 00:00: mouth [place] tablet 00 daily. [facility] losartan 50 2020-0 Yes 100mg Take 100 U nivers mg tablet 5-21 mg by ity of 00:00: mouth [place] 00 daily. [facility] hydroCHLORO 2020-0 Yes 12.5mg Take 12.5 Univers thiazide 5-21 mg by ity of 12.5 mg 00:00: mouth [place] tablet 00 daily. [facility] buPROPion 2020-0 Yes 150mg Take 150 Uni vers SR 150 mg 5-20 mg by ity of SR tablet 00:00: mouth 2 00 (two) Medical times Branch daily. clopidogreL 2020-0 Yes 75mg Take 75 mg Univers 75 mg 5-20 by mouth ity of tablet 00:00: daily. 00 Medical Branch metoprolol 2020-0 Yes 25mg Take 25 mg U nivers succinate 5-20 by mouth ity of XL 25 mg 24 00:00: daily. a s hr tablet 00 [facility] Branch buPROPion 2020-0 Yes 150mg Take 150 Uni vers SR 150 mg 5-20 mg by ity of SR tablet 00:00: mouth [address] [place] [address] ([facility] times [place] daily. clopidogreL 2020-0 Yes 75mg Take 75 mg Univers 75 mg 5-20 by mouth ity of tablet 00:00: daily. [place] [facility] Branch metoprolol 2020-0 Yes 25mg Take 25 mg U nivers succinate 5-20 by mouth ity of XL 25 mg 24 00:00: [place] [facility] buPROPion 2020-0 Yes 150mg Take 150 Uni vers SR 150 mg 5-20 mg by ity of SR tablet 00:00: mouth 2 [place] [address] ([facility] times [place] daily. clopidogreL 2020-0 Yes 75mg Take 75 mg Univers 75 mg 5-20 by mouth ity of tablet 00:00: daily. [place] [facility] metoprolol 2020-0 Yes 25mg Take 25 mg U nivers succinate 5-20 by mouth ity of XL 25 mg 24 00:00: daily. [place] hr tablet [facility] buPROPion 2020-0 Yes 150mg Take 150 Uni vers SR 150 mg 5-20 mg by ity of SR tablet 00:00: mouth 2 [place] [address] ([facility] times [place] daily. clopidogreL 2020-0 Yes 75mg Take 75 mg Univers 75 mg 5-20 by mouth ity of tablet 00:00: daily. [place] [facility] metoprolol 2020-0 Yes 25mg Take 25 mg U nivers succinate 5-20 by mouth ity of XL 25 mg 24 00:00: daily. [place] hr tablet [facility] buPROPion 2020-0 Yes 150mg Take 150 Uni vers SR 150 mg 5-20 mg by ity of SR tablet 00:00: mouth 2 [place] [address] ([facility] times [place] daily. clopidogreL 2020-0 Yes 75mg Take 75 mg Univers 75 mg 5-20 by mouth ity of tablet 00:00: daily. [place] [facility] metoprolol 2020-0 Yes 25mg Take 25 mg U nivers succinate 5-20 by mouth ity of XL 25 mg 24 00:00: daily. [place] tablet 00 [facility] buPROPion 2020-0 Yes 150mg Take 150 Uni vers SR 150 mg 5-20 mg by ity of SR tablet 00:00: mouth 2 [place] [address] ([facility] Medical times [place] daily. clopidogreL 2020-0 Yes 75mg Take 75 mg Univers 75 mg 5-20 by mouth ity of tablet 00:00: daily. [address] metoprolol 2020-0 Yes 25mg Take 25 mg U nivers succinate 5-20 by mouth ity of XL 25 mg 24 00:00: daily. [place] hr tablet [facility] buPROPion 2020-0 Yes 150mg Take 150 Uni vers SR 150 mg 5-20 mg by ity of SR tablet 00:00: mouth 2 [place] [address] ([facility] times [place] daily. clopidogreL 2020-0 Yes 75mg Take 75 mg Univers 75 mg 5-20 by mouth ity of tablet 00:00: daily. [address] metoprolol 2020-0 Yes 25mg Take 25 mg U nivers succinate 5-20 by mouth ity of XL 25 mg 24 00:00: daily. [place] hr tablet [facility] buPROPion 2020-0 Yes 150mg Take 150 Uni vers SR 150 mg 5-20 mg by ity of SR tablet 00:00: mouth 2 [place] [address] ([facility] times [place] daily. clopidogreL 2020-0 Yes 75mg Take 75 mg Univers 75 mg 5-20 by mouth ity of tablet 00:00: daily. [address] metoprolol 2020-0 Yes 25mg Take 25 mg U nivers succinate 5-20 by mouth ity of XL 25 mg 24 00:00: daily. [place] hr tablet [facility] buPROPion 2020-0 Yes 150mg Take 150 Uni vers SR 150 mg 5-20 mg by ity of SR tablet 00:00: mouth 2 [place] [address] ([facility] times [place] daily. clopidogreL 2020-0 Yes 75mg Take 75 mg Univers 75 mg 5-20 by mouth ity of tablet 00:00: daily. [place] [facility] metoprolol 2020-0 Yes 25mg Take 25 mg U nivers succinate 5-20 by mouth ity of XL 25 mg 24 00:00: daily. [place] hr tablet [facility] buPROPion 2020-0 Yes 150mg Take 150 Uni vers SR 150 mg 5-20 mg by ity of SR tablet 00:00: mouth 2 [place] [address] ([facility] times [place] daily. clopidogreL 2020-0 Yes 75mg Take 75 mg Univers 75 mg 5-20 by mouth ity of tablet 00:00: daily. Medical Branch buPROPion 2020-0 Yes 150mg Take 150 Uni vers SR 150 mg 5-20 mg by ity of SR tablet 00:00: mouth 2 [place] ([facility]) Medical times [place] daily. clopidogreL 2020-0 Yes 75mg Take 75 mg Univers 75 mg 5-20 by mouth ity of tablet 00:00: daily. Medical Branch buPROPion 2020-0 Yes 150mg Take 150 Uni vers SR 150 mg 5-20 mg by ity of SR tablet 00:00: mouth 2 [place] ([facility]) Medical times Branch daily. clopidogreL 2020-0 Yes 75mg Take 75 mg Univers 75 mg 5-20 by mouth ity of tablet 00:00: daily. [place] [facility] buPROPion 2020-0 Yes 150mg Take 150 Uni vers SR 150 mg 5-20 mg by ity of SR tablet 00:00: mouth 2 [place] ([facility]) Medical times [place] daily. clopidogreL 2020-0 Yes 75mg Take 75 mg Univers 75 mg 5-20 by mouth ity of tablet 00:00: daily. [place] [facility] Branch buPROPion 2020-0 Yes 150mg Take 150 Uni vers SR 150 mg 5-20 mg by ity of SR tablet 00:00: mouth 2 [place] ([facility]) Medical times [place] daily. clopidogreL 2020-0 Yes 75mg Take 75 mg Univers 75 mg 5-20 by mouth ity of tablet 00:00: daily. [place] [facility] Branch buPROPion 2020-0 Yes 150mg Take 150 Uni vers SR 150 mg 5-20 mg by ity of SR tablet 00:00: mouth 2 [place] ([facility]) Medical times [place] daily. clopidogreL 2020-0 Yes 75mg Take 75 mg Univers 75 mg 5-20 by mouth ity of tablet 00:00: daily. [place] [facility] Branch buPROPion 2020-0 Yes 150mg Take 150 Uni vers SR 150 mg 5-20 mg by ity of SR tablet 00:00: mouth 2 [place] ([facility]) Medical times [place] daily. clopidogreL 2020-0 Yes 75mg Take 75 mg Univers 75 mg 5-20 by mouth ity of tablet 00:00: daily. [address] Branch buPROPion 2020-0 Yes 150mg Take 150 Uni vers SR 150 mg 5-20 mg by ity of SR tablet 00:00: mouth 2 [place] [address] [address]) Medical times Branch daily. clopidogreL 2020-0 Yes 75mg Take 75 mg Univers 75 mg 5-20 by mouth ity of tablet 00:00: daily. [place] [facility] buPROPion 2020-0 Yes 150mg Take 150 Uni vers SR 150 mg 5-20 mg by ity of SR tablet 00:00: mouth 2 [place] (two) Medical times Branch daily. clopidogreL 2020-0 Yes 75mg Take 75 mg Univers 75 mg 5-20 by mouth ity of tablet 00:00: daily. [place] [facility] buPROPion 2020-0 Yes 150mg Take 150 Uni vers SR 150 mg 5-20 mg by ity of SR tablet 00:00: mouth 2 [place] (two) Medical times Branch daily. clopidogreL 2020-0 Yes 75mg Take 75 mg Univers 75 mg 5-20 by mouth ity of tablet 00:00: daily. [place] [facility] buPROPion 2020-0 Yes 150mg Take 150 Uni vers SR 150 mg 5-20 mg by ity of SR tablet 00:00: mouth 2 [place] [address] [address]) Medical times [place] daily. clopidogreL 2020-0 Yes 75mg Take 75 mg Univers 75 mg 5-20 by mouth ity of tablet 00:00: daily. [place] [facility] Branch buPROPion 2020-0 Yes 150mg Take 150 Uni vers SR 150 mg 5-20 mg by ity of SR tablet 00:00: mouth 2 [place] ([facility]) Medical times [place] daily. clopidogreL 2020-0 Yes 75mg Take 75 mg Univers 75 mg 5-20 by mouth ity of tablet 00:00: daily. [place] [facility] Branch buPROPion 2020-0 Yes 150mg Take 150 Uni vers SR 150 mg 5-20 mg by ity of SR tablet 00:00: mouth 2 [place] [address] [address]) Medical times Branch daily. clopidogreL 2020-0 Yes 75mg Take 75 mg Univers 75 mg 5-20 by mouth ity of tablet 00:00: daily. [place] [facility] buPROPion 2020-0 Yes 150mg Take 150 Uni vers SR 150 mg 5-20 mg by ity of SR tablet 00:00: mouth 2 [place] [address] (two) Medical times Branch daily. clopidogreL 2020-0 Yes 75mg Take 75 mg Univers 75 mg 5-20 by mouth ity of tablet 00:00: daily. [place] [facility] buPROPion 2020-0 Yes 150mg Take 150 Uni vers SR 150 mg 5-20 mg by ity of SR tablet 00:00: mouth 2 [place] (two) Medical times Branch daily. clopidogreL 2020-0 Yes 75mg Take 75 mg Univers 75 mg 5-20 by mouth ity of tablet 00:00: daily. Medical Branch buPROPion 2020-0 Yes 150mg Take 150 Uni vers SR 150 mg 5-20 mg by ity of SR tablet 00:00: mouth 2 [place] (two) Medical times Branch daily. clopidogreL 2020-0 Yes 75mg Take 75 mg Univers 75 mg 5-20 by mouth ity of tablet 00:00: daily. Medical Branch buPROPion 2019-0 Yes 150mg Take 150 Uni vers SR 150 mg 5-20 mg by ity of SR tablet 00:00: mouth 2 [place] (two) Medical times Branch daily. clopidogreL 2020-0 Yes 75mg Take 75 mg Univers 75 mg 5-20 by mouth ity of tablet 00:00: daily. Medical Branch buPROPion 2020-0 Yes 150mg Take 150 Uni vers SR 150 mg 5-20 mg by ity of SR tablet 00:00: mouth 2 [place] (two) Medical times Branch daily. clopidogreL 2020-0 Yes 75mg Take 75 mg Univers 75 mg 5-20 by mouth ity of tablet 00:00: daily. Medical Branch metoprolol 0 Yes 25mg Take 25 mg U nivers succinate 5-20 by mouth ity of XL 25 mg 24 00:00: daily. [place] hr tablet [facility] metoprolol 2020- No 25mg Take 25 mg Univers succinate 5-20 -19 by mouth ity o f XL 25 mg 24 00:00: 00:00 daily. [place] hr tablet 00 :00 Medical Branch amLODIPine 2020- No 10mg Take 1 Univ ers 10 mg 12-07 tablet by ity of tablet 00:00: 00:00 mouth [place] 00 :00 daily. Medical Branch amLODIPine 2020- No 10mg Take 1 Univ ers 10 mg 12-07 tablet by ity of tablet 00:00: 00:00 mouth [place] 00 :00 daily. Medical Branch esomeprazol 2020- No 40mg Take 1 Uni vers e (NEXIUM) 12-06 capsule by it y of 40 mg 00:00: 00:00 mouth [place] capsule 00 :00 daily with Medica l breakfast. Branch HYDROcodone 2019- No 1{tbl} Take 1-2 Univers -acetaminop 12-06 tablets by i ty of hen 5-325 00:00: 00:00 mouth [place] mg tablet 00 :00 every 4 Medical (four) Branch hours as needed for Pain (scale 1-3). esomeprazol 2019- No 40mg Take 1 Uni vers e (NEXIUM) 12-06 capsule by it y of 40 mg 00:00: 00:00 mouth [place] capsule 00 :00 daily with Medica l breakfast. Branch HYDROcodone 2019- No 1{tbl} Take 1-2 Univers -acetaminop 12-06 tablets by i ty of hen 5-325 00:00: 00:00 mouth [place] mg tablet 00 :00 every 4 Medical (four) Branch hours as needed for Pain (scale 1-3). Immunizations Ordered Filled Immunization Date Status Comments [facility] [place] e Immunization Name Name Pneumococcal 2016-12-07 Completed University o f Polysaccharide, 00:00:00 [place] Med ical PPSV23 (PNEUMOVAX) Branch Pneumococcal 2016-12-07 Completed University o f Polysaccharide, 00:00:00 [place] Med ical PPSV23 (PNEUMOVAX) Branch Pneumococcal 2016-12-07 Completed University o f Polysaccharide, 00:00:00 [place] Med ical PPSV23 (PNEUMOVAX) Branch Pneumococcal 2016-12-07 Completed University o f Polysaccharide, 00:00:00 [place] Med ical PPSV23 (PNEUMOVAX) Branch Pneumococcal 2016-12-07 Completed University o f Polysaccharide, 00:00:00 [place] Med ical PPSV23 (PNEUMOVAX) Branch Pneumococcal 2016-12-07 Completed University o f Polysaccharide, 00:00:00 [place] Med ical PPSV23 (PNEUMOVAX) Branch Pneumococcal 2016-12-07 Completed University o f Polysaccharide, 00:00:00 [place] Med ical PPSV23 (PNEUMOVAX) Branch Pneumococcal 2016-12-07 Completed University o f Polysaccharide, 00:00:00 [place] Med ical PPSV23 (PNEUMOVAX) Branch Pneumococcal 2016-12-07 Completed University o f Polysaccharide, 00:00:00 [place] Med ical PPSV23 (PNEUMOVAX) Branch Pneumococcal 2016-12-07 Completed University o f Polysaccharide, 00:00:00 [place] Med ical PPSV23 (PNEUMOVAX) Branch Pneumococcal 2016-12-07 Completed University o f Polysaccharide, 00:00:00 [place] Med ical PPSV23 (PNEUMOVAX) Branch Pneumococcal 2016-12-07 Completed University o f Polysaccharide, 00:00:00 [place] Med ical PPSV23 (PNEUMOVAX) Branch Pneumococcal 2016-12-07 Completed University o f Polysaccharide, 00:00:00 [place] Med ical PPSV23 (PNEUMOVAX) Branch Pneumococcal 2016-12-07 Completed University o f Polysaccharide, 00:00:00 [place] Med ical PPSV23 (PNEUMOVAX) Branch Pneumococcal 2016-12-07 Completed University o f Polysaccharide, 00:00:00 [place] Med ical PPSV23 (PNEUMOVAX) Branch Pneumococcal 2016-12-07 Completed University o f Polysaccharide, 00:00:00 [place] Med ical PPSV23 (PNEUMOVAX) Branch Pneumococcal 2016-12-07 Completed University o f Polysaccharide, 00:00:00 [place] Med ical PPSV23 (PNEUMOVAX) Branch Pneumococcal 2016-12-07 Completed University o f Polysaccharide, 00:00:00 [place] Med ical PPSV23 (PNEUMOVAX) Branch Pneumococcal 2016-12-07 Completed University o f Polysaccharide, 00:00:00 [place] Med ical PPSV23 (PNEUMOVAX) Branch Pneumococcal 2016-12-07 Completed University o f Polysaccharide, 00:00:00 [place] Med ical PPSV23 (PNEUMOVAX) Branch Pneumococcal 2016-12-07 Completed University o f Polysaccharide, 00:00:00 [place] Med ical PPSV23 (PNEUMOVAX) Branch Pneumococcal 2016-12-07 Completed University o f Polysaccharide, 00:00:00 [place] Med ical PPSV23 (PNEUMOVAX) Branch Pneumococcal 2016-12-07 Completed University o f Polysaccharide, 00:00:00 [place] Med ical PPSV23 (PNEUMOVAX) Branch Pneumococcal 2016-12-07 Completed University o f Polysaccharide, 00:00:00 [place] Med ical PPSV23 (PNEUMOVAX) Branch Pneumococcal 2016-12-07 Completed University o f Polysaccharide, 00:00:00 [place] Med ical PPSV23 (PNEUMOVAX) Branch Pneumococcal 2016-12-07 Completed University o f Polysaccharide, 00:00:00 [place] Med ical PPSV23 (PNEUMOVAX) Branch Pneumococcal 2016-12-07 Completed University o f Polysaccharide, 00:00:00 [place] [facility] ical PPSV23 (PNEUMOVAX) [place] Vital Signs Vital Name Observation Time Observation Value Comments Source Systolic blood 2021-08-17 15:50:00 145 mm[Hg] Univer sity of pressure [place] [facility] Diastolic blood 2021-08-17 15:50:00 85 mm[Hg] Unive rsity of pressure [facility] Heart rate 2021-08-17 15:50:00 61 /min Universi ty of [place] [facility] Respiratory rate 2021-08-17 15:50:00 18 /min Univ ersity of [facility] Oxygen saturation in 2021-08-17 15:50:00 99 /min University of Arterial blood by [place] [facility] Pulse oximetry Branch Body temperature 2021-08-17 13:53:00 36.44 [place] [facility] ersity of [place] [facility] [place] Body height 2021-08-17 13:53:00 170.2 cm Universi ty of [place] [facility] [place] Body weight 2021-08-17 13:53:00 81.647 kg [facility]i ty of [place] [facility] BMI 2021-08-17 13:53:00 28.19 kg/m2 [facility]i ty [facility] [place] [facility] Body weight 2020-09-27 13:39:00 83.915 kg [facility]i ty [facility] [place] [facility] BMI 2020-09-27 13:39:00 28.98 kg/m2 [facility] [place] [facility] Systolic blood 2020-09-26 04:53:00 108 mm[Hg] Univer sity of [facility] Diastolic blood 2020-09-26 04:53:00 66 mm[Hg] Unive rsity of pressure [place] [facility] Heart rate 2020-09-26 04:53:00 65 /min [facility]i ty [facility] [place] [facility] Respiratory rate 2020-09-26 04:53:00 20 /min Univ ersity of [place] [facility] Oxygen saturation in 2020-09-26 04:53:00 97 /min University of Arterial blood by [place] [facility] Pulse oximetry Branch Body temperature 2020-09-26 01:45:00 37.11 [place] [facility] ersity of [place] [facility] Body weight 2020-09-26 01:45:00 87 kg [facility]i ty [facility] [place] [facility] BMI 2020-09-26 01:45:00 30.04 kg/m2 [facility] [place] [facility] Systolic blood 2020-08-22 19:45:00 134 mm[Hg] Univer sity of pressure [place] [facility] Diastolic blood 2020-08-22 19:45:00 86 mm[Hg] Unive rsity of pressure [facility] Heart rate 2020-08-22 19:45:00 65 /min Universi ty [facility] [place] [facility] Body height 2020-08-22 19:45:00 170.2 cm Universi ty of [place] [facility] Body weight 2020-08-22 19:45:00 81.647 kg Universi ty of [place] [facility] BMI 2020-08-22 19:45:00 28.19 kg/m2 [facility] [place] [facility] Systolic blood 2020-08-08 20:50:00 140 mm[Hg] Univer sity of [facility] Branch Diastolic blood 2020-08-08 20:50:00 88 mm[Hg] Unive rsity of [facility] Heart rate 2020-08-08 20:35:00 62 /min Universi ty of [place] [facility] [place] Oxygen saturation in 2020-08-08 20:35:00 97 /min [facility] Arterial blood by [facility] Pulse oximetry Branch Respiratory rate 2020-08-08 20:20:00 16 /min Univ ersity of [facility] Body temperature 2020-08-08 16:36:00 37.22 [place] Univ ersity of [facility] Body height 2020-08-03 15:06:00 170.2 cm [facility]i ty [facility] [place] [facility] Body weight 2020-08-03 15:06:00 87.5 kg [facility]i ty [facility] [place] [facility] BMI 2020-08-03 15:06:00 30.21 kg/m2 [facility] [place] [facility] Systolic blood 2020-07-15 14:23:00 132 mm[Hg] Univer sity of pressure [place] [facility] Diastolic blood 2020-07-15 14:23:00 79 mm[Hg] Unive rsity of pressure [place] [facility] Body height 2020-07-15 14:23:00 170.2 cm [facility]i ty [facility] [place] [facility] Body weight 2020-07-15 14:23:00 87.544 kg [facility]i [facility] [place] [facility] BMI 2020-07-15 14:23:00 30.23 kg/m2 [facility] Systolic blood 2019-12-04 14:51:00 130 mm[Hg] Univer sity of pressure [facility] Diastolic blood 2019-12-04 14:51:00 81 mm[Hg] Unive rsity of pressure [facility] Heart rate 2019-12-04 14:51:00 48 /min [facility] Body height 2019-12-04 14:42:00 170.2 cm [facility] Body weight 2019-12-04 14:42:00 87.544 kg stated [facility] BMI 2019-12-04 14:42:00 30.23 kg/m2 [facility] [facility] Procedures Procedure Date / Time Performed Performing Clinician Fernanda grigsby CT LOW DOSE LUNG 2021-08-31 17:57:37 Requisition, Paper [facility] ASSIGNMENT OF BENEFITS 2021-08-31 15:41:15 Doctor Unassigned, No [facility] XR KNEE <3 VW RIGHT 2021-08-17 14:42:56 Yovani Carrero [facility] NOTICE OF PRIVACY 2021-08-17 13:46:34 Doctor Unassigned, No Univ ersity of [facility] CONSENT/REFUSAL FOR 2021-08-17 13:45:51 [facility] Unassigned, No [facility] TREATMENT COVID-19 (ID NOW RAPID 2020-08-05 14:48:00 Chris Carpenter Uni [facility] [place] [facility] PRE-OP 2020-08-01 06:01:00 Doctor Unassigned, No Univer sity of [facility] DSU PRE-OP 2020-07-29 06:01:00 Doctor Unassigned, No Univer sit of [facility] XR CHEST 2 VW 2020-07-26 15:52:00 Chris Carpenter [facility] Encounters Start End Encounter Admission Attending Care Care Encounter Source Date/Time Date/Time Type Type Clinicians Facility Department ID 2021-04-16 Emergency [facility] [id number] Univers 12:07:05 ity of [facility] 2021-04-15 Outpatient R JAYDEN, UTJUNIE ANDRADE [id number] Univers 22:53:42 CHRIS ity [facility] 2021-08-31 2021-08-31 Outpatient R RADIOLOGY [facility] [id number] Univers 12:32:54 23:59:00 ity [facility] 2021-08-31 2021-08-31 Hospital Radiology [facility] [id number] Univers 12:32:54 23:59:00 Encounter MARIAM [id number] ity [facility] 4.2.7.2.686 [facility] [id number] [facility] [address] 2021-08-31 2021-08-31 Outpatient R RADIOLOGY [facility] [id number] Univers 13:00:00 13:00:00 [id number] ity [facility] 2021-08-31 2021-08-31 Orders Doctor KYE 1.2.840.114 [id number] Univers 00:00:00 00:00:00 Only Unassigned, DERRELL [id number] ity of [place] [facility] 4.2.7.2.[id number] [facility] [address] 2021-08-17 2021-08-17 Emergency X [facility] ERT [id number] Univers 07:56:00 09:59:00 YOVANI crockett [facility] 2021-08-17 2021-08-17 Emergency [facility] [id number] Univers 07:56:00 09:59:00 Yovani BECERRA [id number] i ty of [place] 4.2.7.2.686 [facility] [id number] [facility] [address] 2021-08-17 2021-08-17 Orders Doctor KYE 1.2.840.114 [id number] Univers 00:00:00 00:00:00 Only Unassigned, DERRELL [id number] ity of [place] [facility] 4.2.7.2.[id number] [facility] [address] 2020-10-21 2020-10-21 Outpatient R VERA, [facility] [id number] Univers 13:00:00 13:00:00 [facility] [id number] ity of [facility] 2020-10-21 2020-10-21 Outpatient R VERA [facility] [id number] Univers 13:00:00 13:00:00 HUMAIR ity of [facility] 2020-10-14 2020-10-14 Outpatient R VERA [facility] [id number] Univers 13:45:00 13:45:00 HUMAIR [id number] ity [facility] 2020-10-14 2020-10-14 Outpatient Michael GAMEZ [facility] [id number] Univers 13:45:00 13:45:00 HUMAIR ity [facility] 2020-09-30 2020-09-30 Office Vera [facility] 1.2.840.114 [id number] Univers 11:23:58 11:24:22 Visit [facility] [id number] it y of [place]2.7.2.686 [place] [facility] [id number] [facility] [address] [place] 2020-09-30 2020-09-30 Outpatient R VERA [facility] [id number] Univers 08:00:00 11:24:22 HUMAIR ity [facility] 2020-09-30 2020-09-30 Outpatient R VERA [facility] [id number] Univers 08:00:00 08:00:00 [facility] [id number] ity [facility] 2020-09-30 2020-09-30 Letter Doctor FISHMAN 1.2.840.114 [id number] Univers 00:00:00 00:00:00 (Out) Unassigned, DERRELL [id number] ity of [place] [facility] 4.2.7.2.[phone] [facility] [address] [place] 2020-09-30 2020-09-30 Letter Doctor KYE 1.2.840.114 [id number] Univers 00:00:00 00:00:00 (Out) Unassigned, DERRELL 350.1.13.10 ity of [place] [facility] 4.2.7.2.[id number] [facility] [address] [place] 2020-09-27 2020-09-27 Office ASIF [employer] [id number] Univers 08:31:48 09:29:37 Visit [employer] Y 350.1.13.10 it y of NATIONAL 4.2.7.2.686 Yosef as BANK [id number] [facility] BLDG. [address] [place] 2020-09-27 2020-09-27 [facility] [id number] Univers 08:45:00 08:45:00 HUMAIR [id number] ity [facility] 2020-09-27 2020-09-27 [facility] [id number] Univers 08:45:00 08:45:00 HUMAIR ity [facility] 2020-09-25 2020-09-26 Emergency Matthews, TRAUMA 1.2.101.150 [id number] Univers 20:49:00 00:01:00 [facility] 350.1.13.10 it[place] [place] [id number] [facility] [address] [place] 2020-08-22 2020-08-22 Office [facility] 1.2.840.114 [id number] Univers 13:40:34 13:55:34 Visit [facility] 350.1.13.10 it y of Surgical 4.2.7.2.686 [place]f as Specialti [id number] Md dical es [address] [facility] 2020-08-22 2020-08-22 Outpatient [facility] [id number] Univers 13:45:00 13:45:00 FELICIANO [id number] ity [facility] 2020-08-22 2020-08-22 Outpatient [facility] [id number] Univers 13:45:00 13:45:00 FELICIANO ity [facility] 2020-08-11 2020-08-11 Telephone Jayden [facility] 1.2.840.114 [id number] Univers 00:00:00 00:00:00 [facility] [id number] it y of Surgical 4.2.7.2.686 [place] Specialti [id number] Md dical es [address] [facility] 2020-08-10 2020-08-10 Telephone Jayden [facility] 1.2.840.114 [id number] Univers 00:00:00 00:00:00 Chris [facility] 350.1.13.10 it y of Surgical 4.2.7.2.686 [place] Specialti [id number] Md dical es [address] [facility] 2020-08-08 2020-08-08 [facility] Jayden [facility] 1.2.840.114 [id number] Univers 10:32:00 14:54:00 Encounter Chris Becerra 350.1.13.10 it[place] [id number] [address] 2020-08-08 2020-08-08 Prep For Jayden [facility] 1.2.840.114 [id number] Univers 00:00:00 00:00:00 Surgery Chris [facility] 350.1.13.10 it y of Surgical 4.2.7.2.686 [place] as Specialti [phone] Md dical es [address] [facility] 2020-08-08 2020-08-08 Telephone Jayden [facility] 1.2.840.114 [id number] Univers 00:00:00 00:00:00 Chris [facility] 350.1.13.10 it y of Surgical 4.2.7.2.686 [place] Specialti [id number] Md dicwy es [address] [facility] 2020-08-05 2020-08-05 Outpatient R [facility] [id number] Univers 12:00:00 12:00:00 [id number] ity [facility] 2020-08-05 2020-08-05 [facility] [id number] Univers 12:00:00 12:00:00 CHRIS itpeter [facility] 2020-08-05 2020-08-05 Laboratory Only, Adc Test [facility] 1.2.840. 114 [id number] Univers 08:21:30 08:36:30 Only Chris Carpenter 350.1.13.10 it[place] [id number] [facility] [address] 2020-08-01 2020-08-01 Orders Doctor KYE 1.2.840.114 [id number] Univers 00:00:00 00:00:00 Only Unassigned, DERRELL 350.1.13.10 ity of [place] [facility] 4.2.7.2.[phone] [facility] [address] [place] 2020-07-29 2020-07-29 Orders Doctor KYE 1.2.840.114 [id number] Univers 00:00:00 00:00:00 Only Unassigned, DERRELL 350.1.13.10 ity of [place] [facility] 4.2.7.2.[id number] [facility] [address] [place] 2020-07-28 2020-07-28 Telephone [facility] 1.2.840.114 [id number] Univers 00:00:00 00:00:00 Chris Roper [employer] 350.1.13.10 it y of Surgical 4.2.7.2.686 [place] as Specialti [id number] [facility] es [address] [facility] 2020-07-27 2020-07-27 Telephone [facility] 1.2.840.114 [id number] Univers 00:00:00 00:00:00 Chris Roper [facility] 350.1.13.10 it y of Surgical 4.2.7.2.686 [place] as Specialti [phone] [facility] es [address] [facility] 2020-07-26 2020-07-26 [facility] 1.2.840.114 [id number] Univers 09:33:00 23:59:00 Encounter Chris Becerra 350.1.13.10 ity of [place] 4.2.7.2.686 [facility] [id number] [facility] [address] [place] 2020-07-26 2020-07-26 Outpatient R JAYDEN [facility] [id number] Univers 09:33:00 23:59:00 CHRIS ity of [facility] 2020-07-15 2020-07-15 Office Cosme [facility] 1.2.840.114 [id number] Univers 08:17:43 08:32:43 Visit [facility] 350.1.13.10 it y of Surgical 4.2.7.2.686 [place] as Specialti [id number] Md dical es [address] [facility] 2020-07-15 2020-07-15 Outpatient [facility] [id number] Univers 08:15:00 08:15:00 [facility] [id number] 2020-07-15 2020-07-15 Outpatient [facility] [id number] Univers 08:15:00 08:15:00 [facility] 2019-12-04 2019-12-[address] [facility] 1.2.840.114 [id number] Univers 09:38:39 10:33:08 Visit [facility] 350.1.13.10 it y of Surgical 4.2.7.2.686 [place] as Specialti [id number] Md dical es [address] [facility] 2019-12-04 2019-12-04 Outpatient [facility] [id number] Univers 10:00:00 10:00:00 [facility] Results Test Description Test Time Test Comments Results Result Comments Source COVID-19 (ID NOW RAPID TESTING) 2020-08-05 15:27:00 Test Item Value Reference Range Interpretation Comme nts SARS-CoV-2 Rapid ID NOW (test code Not Detected Not Detected = 23302-8) JANIE (test code = JANIE) ID NOW COVID-19 Assay is an isothermal nucleic acid amplification test intended for the qualitative detection of nucleic acid from SARS-CoV-2 viral RNA in nasopharyngeal (CLINIC NURSE) specimens. It is used under Emergency Use Authorization (EUA) by FDA. The limit of detection (LOD) of the assay is 125 Genome Equivalents/mL. A positive result is indicative of the presence of SARS-CoV-2 RNA. ?Clinical correlation with patient history and other diagnostic information is necessary to determine patient infection status. A negative (Not Detected) result does not preclude SARS-CoV-2 infection. In patients with clinical symptoms and other tests that are consistent with SARS-CoV-2 infection, negative results should be treated as presumptive negative and a new specimen should be tested with alternative PCR molecular test. Invalid: Please collect a new specimen for repeat patient testing if clinically indicated. Lab Interpretation (test code = Normal 68994-7) [facility] [id number] 16:20:18HISTORY: Preop. TECHNIQUE: PA and lateral views of the chest are obtained. Comparison madewith 06/08/2015 study. FINDINGS: No acute pneumonia detected. No pneumothorax or pleural effusionor pulmonary congestion. Cardiothoracic ratio of approximately 12.1/32.7 cmis consistent with normal cardiac size. Slightly elongated and tortuousdescending thoracic aorta are noted. No compression fracture deformitydetected in the thoracic vertebral bodies. CONCLUSIONS: No signs of acute cardiopulmonary disease.[facility], Radiant Results Inft User - 07/26/2020 10:21 AM CSTHISTORY: Preop.TECHNIQUE: PA and lateral views of the chest are obtained. Comparison madewith 06/08/2015 study.FINDINGS: No acute pneumonia detected. No pneumothorax or pleural effusionor pulmonary congestion. Cardiothoracic ratio of approximately 12.1/32.7 cmis consistent with normal cardiac size. Slightly elongated and tortuousdescending thoracicaorta are noted. No compression fracture deformitydetected in the thoracic vertebral bodies.CONCLUSIONS: No signs of acute cardiopulmonary disease.[facility]
[2021-10-04 11:38] LABS: Absolute Lymphocytes (CBC) 2.2 K/uL (0.7-4.9); Hematocrit 39.9 % (39.6-49.0); Lymphocytes % 20.3 % (15.3-44.8); MPV 8.8 fL (7.6-11.3); RBC Red Blood Cell Count 4.32 M/uL (4.33-5.43)
[2021-10-04] MEDS ORDERED: CIPROFLOXACIN 400mg IV 0 MG/0 ML BAG IV ONE (11:45)
[2021-10-04] MEDS ORDERED: NA CHLORIDE 0.9% 1,000 ML ONE (11:45)
[2021-10-04] MEDS ORDERED: METRONIDAZOLE 500mg IVPB 0 MG/0 ML BAG IV ONE (11:45)
[2021-10-04 11:54] LABS: ALT/SGPT 35 U/L (12-78); AST/SGOT 26 U/L (15-37); Alkaline Phosphatase 83 U/L (45-117); BUN Blood Urea Nitrogen 17 mg/dL (7-18); Bicarbonate 27 mmol/L (21-32); Bilirubin Total 0.6 mg/dL (0.2-1.0); Glucose Level 100 mg/dL (74-106); Lipase 69 U/L (73-393); Potassium 4.5 mmol/L (3.5-5.1); Protein, Total 7.8 g/dL (6.4-8.2); Sodium Level 140 mmol/L (136-145)
[2021-10-04 12:01] LABS: Protime INR 1.09
[2021-10-04 12:10] LABS: BUN Blood Urea Nitrogen 16 mg/dL (7-18); Bicarbonate 24 mmol/L (21-32); Glucose Level 98 mg/dL (74-106); Magnesium 2.1 mg/dL (1.8-2.4); NT PRO-BNP 62 pg/mL (<125); Potassium 3.9 mmol/L (3.5-5.1); Sodium Level 140 mmol/L (136-145); Troponin High Sensitivity 7.2 pg/mL (<58.9)
--- NOTE | 2021-10-04 12:21 | RAD REPORT ---
EXAM DESCRIPTION: CTAbdomen Pelvis W Contrast - 10/04/2021 12:10 pm CLINICAL HISTORY: rectal bleed COMPARISON: Abdomen Wo Contrast dated 02/23/2021 TECHNIQUE: CT of the abdomen and pelvis was performed. All CT scans are performed using dose optimization technique as appropriate and may include automated exposure control or mA/KV adjustment according to patient size. FINDINGS: Lower chest: No acute abnormality. Liver: Sub 5 mm liver lesions which are highly likely be benign. Biliary: Cholecystectomy Stomach: No significant focal abnormality. Duodenum: No significant focal abnormality. Pancreas: No significant abnormality. Spleen: No significant abnormality. Adrenal: No suspicious lesions. Kidney/ureter: No hydronephrosis. No renal calculi. Retroperitoneum: No retroperitoneal adenopathy. Vascular: No aneurysm. Atherosclerosis . Bowel: No significant focal abnormality. Normal appendix. Peritoneum: No ascites or free air. Bladder: Circumferential bladder wall thickening. Reproductive: Prostatomegaly. Bones: No acute fracture. Other: n/a IMPRESSION: No acute intra-abdominal or pelvic finding. No specific CT findings to explain rectal bl eeding. Normal appendix. Bladder wall thickening which is likely related to chronic bladder outlet ob struction.
--- NOTE | 2021-10-04 12:54 | EDPHYS ---
Physician Documentation [facility] Name: Rickey Rogel Age: 56 yrs Sex: Male : 1965 Arrival Date: 10/04/2021 Time: 10:43 Bed 11 Private MD: ED Physician Tristan Philippe HPI: 10/04 12:47 This 56 yrs old Male presents to ER via Ambulatory with complaints of Bloody lisa Stools. 12:47 The patient presents with abdominal pain that is diffuse. Onset: The symptoms/episode lisa began/occurred 1 day(s) ago. The symptoms do not radiate. Associated signs and symptoms: none. The symptoms are described as crampy. Severity of pain: At its worst the pain was mild in the emergency department the pain is unchanged. The patient has not experienced similar symptoms in the past. Historical: - Allergies: 11:06 No Known Allergies; vg1 - Home Meds: 11:06 aspirin 81 mg Oral TbEC 1 tab Every other day [Active]; atorvastatin 80 mg Oral tab 1 vg1 tab once daily [Active]; losartan oral [Active]; Hydrochlorothiazide Oral [Active]; Vitamin C Oral [Active]; - PMHx: 11:06 Hypertension; vg1 - PSHx: 11:06 Total Right Knee; Cholecystectomy; Stented artery; vg1 - Immunization history:: Client reports having NOT received the Covid vaccine. - Social history:: Smoking status: Patient reports the use of cigarette tobacco products, smokes one pack cigarettes per day. - Family history:: not pertinent. ROS: 12:47 Constitutional: Negative for fever, chills, and weight loss, Eyes: Negative for injury, lisa pain, redness, and discharge, ENT: Negative for injury, pain, and discharge, Neck: Negative for injury, pain, and swelling, Cardiovascular: Negative for chest pain, palpitations, and edema, Respiratory: Negative for shortness of breath, cough, wheezing, and pleuritic chest pain, Back: Negative for injury and pain, : Negative for injury, bleeding, discharge, and swelling, MS/Extremity: Negative for injury and deformity, Skin: Negative for injury, rash, and discoloration, Neuro: Negative for headache, weakness, numbness, tingling, and seizure, Psych: Negative for depression, anxiety, suicide ideation, homicidal ideation, and hallucinations, Allergy/Immunology: Negative for hives, rash, and allergies, Endocrine: Negative for neck swelling, polydipsia, polyuria, polyphagia, and marked weight changes, Hematologic/Lymphatic: Negative for swollen nodes, abnormal bleeding, and unusual bruising. 12:47 Abdomen/GI: Positive for abdominal pain, abdominal cramps. Exam: 12:47 Constitutional: This is a well developed, well nourished patient who is awake, alert, lisa and in no acute distress. Head/Face: Normocephalic, atraumatic. Eyes: Pupils equal round and reactive to light, extra-ocular motions intact. Lids and lashes normal. Conjunctiva and sclera are non-icteric and not injected. Cornea within normal limits. Periorbital areas with no swelling, redness, or edema. ENT: Nares patent. No nasal discharge, no septal abnormalities noted. Tympanic membranes are normal and external auditory canals are clear. Oropharynx with no redness, swelling, or masses, exudates, or evidence of obstruction, uvula midline. Mucous membranes moist. Neck: Trachea midline, no thyromegaly or masses palpated, and no cervical lymphadenopathy. Supple, full range of motion without nuchal rigidity, or vertebral point tenderness. No Meningismus. Chest/axilla: Normal chest wall appearance and motion. Nontender with no deformity. No lesions are appreciated. Cardiovascular: Regular rate and rhythm with a normal S1 and S2. No gallops, murmurs, or rubs. Normal PMI, no JVD. No pulse deficits. Respiratory: Lungs have equal breath sounds bilaterally, clear to auscultation and percussion. No rales, rhonchi or wheezes noted. No increased work of breathing, no retractions or nasal flaring. Back: No spinal tenderness. No costovertebral tenderness. Full range of motion. Male : Normal genitalia with no discharge or lesions. Skin: Warm, dry with normal turgor. Normal color with no rashes, no lesions, and no evidence of cellulitis. MS/ Extremity: Pulses equal, no cyanosis. Neurovascular intact. Full, normal range of motion. Neuro: Awake and alert, GCS 15, oriented to person, place, time, and situation. Cranial nerves II-XII grossly intact. Motor strength 5/5 in all extremities. Sensory grossly intact. Cerebellar exam normal. Normal gait. Psych: Awake, alert, with orientation to person, place and time. Behavior, mood, and affect are within normal limits. 12:47 Abdomen/GI: Inspection: abdomen appears normal, Bowel sounds: normal, Palpation: abdomen is soft and non-tender, Liver: no appreciated palpable abnormalities, Hernia: not appreciated. 13:21 Abdomen/GI: Rectal exam: is unremarkable, Prostate: normal, rectal tone normal, Stool: lisa guaiac positive, hemorrhoid(s), are not appreciated, mass, is not appreciated, swelling, is not appreciated, tenderness, is not appreciated, fecal impaction, is not appreciated, the exam is chaperoned by a family member. 13:46 ECG was reviewed by the Attending Physician. [facility] Vital Signs: 11:03 BP 115 / 81; Pulse 80; Resp 16; Temp 98.0; Pulse Ox 100% ; Weight 77.11 kg; Height 5 vg1 ft. 7 in. (170.18 cm); Pain 7/10; 13:39 BP 121 / 77; Pulse 73; Resp 18; Pulse Ox 100% ; ab2 11:03 Body Mass Index 26.63 (77.11 kg, 170.18 cm) vg1 MDM: 11:22 Patient medically screened. lisa 12:50 Differential diagnosis: gastritis, non-specific abd pain, urinary tract infection. Data [facility] reviewed: vital signs, nurses notes, lab test result(s), EKG, radiologic studies, CT scan. Data interpreted: cardiac monitor: rate is 80 beats/min, rhythm is regular, Pulse oximetry: on room air is 100 %. Test interpretation: by ED physician or midlevel provider: ECG, plain radiologic studies. Counseling: I had a detailed discussion with the patient and/or guardian regarding: the historical points, exam findings, and any diagnostic results supporting the discharge/admit diagnosis, lab results, radiology results, the need for outpatient follow up, for definitive care, a family practitioner, a cycle director. 10/04 11:09 Order name: CBC with Diff; Complete Time: 12:45 [facility] 10/04 11:09 Order name: CMP; Complete Time: 12:45 [facility] 10/04 11:09 Order name: Lipase; Complete Time: 12:45 [facility] 10/04 11:27 Order name: Basic Metabolic Panel; Complete Time: 12:45 [facility] 10/04 11:27 Order name: Magnesium; Complete Time: 12:45 lisa 10/04 11:27 Order name: NT PRO-BNP; Complete Time: 12:45 [facility] 10/04 11:27 Order name: PT-INR; Complete Time: 12:45 lisa 10/04 11:27 Order name: Troponin HS; Complete Time: 12:45 lisa 10/04 11:27 Order name: XRAY Chest (1 view); Complete Time: 13:20 lisa 10/04 11:27 Order name: Type And Screen; Complete Time: 13:20 lisa 10/04 11:27 Order name: CT Abd/Pelvis - IV Contrast Only; Complete Time: 12:45 [facility] 10/04 11:09 Order name: IV Saline Lock; Complete Time: : 10/04 11:09 Order name: Labs collected and sent; Complete Time: 11: [facility] 10/04 11:27 Order name: EKG; Complete Time: 11:28 10/04 11:27 Order name: Cardiac monitoring; Complete Time: 11:44 lisa 10/04 11:27 Order name: EKG - Nurse/Tech; Complete Time: 11:44 lisa 10/04 11:27 Order name: O2 Per Protocol; Complete Time: 11:45 lisa 10/04 11:27 Order name: O2 Sat Monitoring; Complete Time: 11:45 [facility] 10/04 11:48 Order name: Labs - recollect needed: recollect type and screen, do not use a gel pen.; bd Complete Time: 12:01 EC:46 Rate is 68 beats/min. Rhythm is regular. QRS [place] is Normal. MS interval is normal. QRS lisa interval is normal. QT interval is normal. No Q waves. T waves are Normal. No ST changes noted. Clinical impression: Normal ECG and No evidence of ischemia. Interpreted by me. Reviewed by me. Administered Medications: 11:44 Drug: NS 0.9% 1000 ml Route: IV; Rate: 1 bolus; Site: right antecubital; ab2 13:39 Follow up: Response: No adverse reaction; IV Status: Completed infusion ab2 12:45 Not Given (Duplicate Order): Cipro (ciprofloxacin) 400 mg 200 ml IVPB once over 60 mins lisa 12:45 Not Given (Duplicate Order): Flagyl (metroNIDAZOLE) 500 mg 100 ml IVPB at 200 ml/hr lisa once over 30 mins Disposition Summary: 10/04/21 12:53 Discharge Ordered Location: Home lisa Problem: new lisa Symptoms: have improved lisa Condition: Stable lisa Diagnosis - GI Bleed/ Gastrointestinal hemorrhage, unspecified lisa Followup: lisa - With: Private Physician - When: 1 - 2 days - Reason: Recheck today's complaints, Continuance of care, Re-evaluation by your physician Followup: lisa - With: Khalif Saavedra MD - When: 2 - 3 days - Reason: Recheck today's complaints, Re-evaluation by your physician Discharge Instructions: - Discharge Summary Sheet lisa - Gastrointestinal Bleeding lisa - Rectal Bleeding lisa - Rectal Bleeding, Vzon-hy-Vxgm lisa - Gastrointestinal Bleeding Scan lisa - Lower Gastrointestinal Bleeding lisa Forms: - Medication Reconciliation Form lisa - Thank You Letter lisa - Antibiotic Education lisa - Prescription Opioid Use lisa Prescriptions: - Protonix 40 mg Oral Tablet - take 1 tablet by ORAL route once daily; 30 tablet; Refills: 0, Product lisa Selection Permitted - Cipro 500 mg Oral Tablet - take 1 tablet by ORAL route every 12 hours for 7 days; 14 tablet; Refills: 0, lisa Product Selection Permitted - dicyclomine 20 mg Oral Tablet - take 1 tablet by ORAL route 4 times per day; 28 tablet; Refills: 0, Product lisa Selection Permitted Signatures: Dispatcher [employer] Zee Samayoa Corey, MD MD cha Garcia, Victoria RN RN vg1 Christian Mckenzie2
--- NOTE | 2021-10-04 12:54 | ER ---
Nurse's Notes [facility] Name: Rickey Rogel Age: 56 yrs Sex: Male : 1965 Arrival Date: 10/04/2021 Time: 10:43 Bed 11 Private MD: Diagnosis: GI Bleed/ Gastrointestinal hemorrhage, unspecified Presentation: 10/04 11:03 Chief complaint: Patient states: Noticed bloody stool yesterday; states "bright red vg1 blood wrapped in stool" and states 'looks like there may be mucous in it too' ; c/o ABD pain and nausea. Coronavirus screen: Vaccine status: Patient reports being unvaccinated. Client denies travel out of the [place] in the last 14 days. Ebola Screen: Patient negative for fever greater than or equal to 101.5 degrees Fahrenheit, and additional compatible Ebola Virus Disease symptoms. Initial Sepsis Screen: Does the patient meet any 2 criteria? No. Patient's initial sepsis screen is negative. Does the patient have a suspected source of infection? No. Patient's initial sepsis screen is negative. Risk Assessment: Do you want to hurt yourself or someone else? Patient reports no desire to harm self or others. Onset of symptoms was October 03, 2021. 11:03 Method Of Arrival: Ambulatory vg1 11:03 Acuity: TIERNEY 3 vg1 Triage Assessment: 11:06 General: Appears in no apparent distress. uncomfortable, Behavior is calm, cooperative. vg1 Pain: Complains of pain in abdomen. GI: Reports lower abdominal pain, upper abdominal pain, bloody stool, nausea. Historical: - Allergies: 11:06 No Known Allergies; vg1 - Home Meds: 11:06 aspirin 81 mg Oral TbEC 1 tab Every other day [Active]; atorvastatin 80 mg Oral tab 1 vg1 tab once daily [Active]; losartan oral [Active]; Hydrochlorothiazide Oral [Active]; Vitamin C Oral [Active]; - PMHx: 11:06 Hypertension; vg1 - PSHx: 11:06 Total Right Knee; Cholecystectomy; Stented artery; vg1 - Immunization history:: Client reports having NOT received the Covid vaccine. - Social history:: Smoking status: Patient reports the use of cigarette tobacco products, smokes one pack cigarettes per day. - Family history:: not pertinent. Screenin:02 Abuse screen: Denies threats or abuse. Denies injuries from another. Nutritional ab2 screening: No deficits noted. Tuberculosis screening: No symptoms or risk factors identified. Fall Risk None identified. Assessment: 12:01 General: Appears in no apparent distress. uncomfortable, Behavior is calm, cooperative, ab2 appropriate for age. Pain: Complains of pain in abdomen. Neuro: No deficits noted. Level of Consciousness is awake, alert, obeys commands, Oriented to person, place, time, situation, Appropriate for age [employer] Manager are equal bilaterally Moves all extremities. Gait is steady, Speech is normal. Cardiovascular: No deficits noted. Denies chest pain, shortness of breath, Heart tones S1 S2 present Patient's skin is warm and dry. Respiratory: No deficits noted. Airway is patent Respiratory effort is even, unlabored, Respiratory pattern is regular, symmetrical, Breath sounds are clear bilaterally. GI: Abdomen is round non-distended, Bowel sounds present X 4 quads. Reports lower abdominal pain, upper abdominal pain, bloody stool, nausea. : No deficits noted. No signs and/or symptoms were reported regarding the genitourinary system. Derm: No deficits noted. No signs and/or symptoms reported regarding the dermatologic system. Skin is intact, Skin is pink, warm \\T\\ dry. Vital Signs: 11:03 BP 115 / 81; Pulse 80; Resp 16; Temp 98.0; Pulse Ox 100% ; Weight 77.11 kg; Height 5 vg1 ft. 7 in. (170.18 cm); Pain 7/10; 13:39 BP 121 / 77; Pulse 73; Resp 18; Pulse Ox 100% ; ab2 11:03 Body Mass Index 26.63 (77.11 kg, 170.18 cm) vg1 ED Course: 10:43 Patient arrived in ED. am2 11:06 Triage completed. vg1 11:08 Arm band placed on. vg1 11:22 Tristan Philippe MD is Attending Physician. [facility] 11:29 Inserted saline lock: 20 gauge in right antecubital area, using aseptic technique. Blood collected. 11:31 Lipase Sent. zm 11:31 CMP Sent. 11:31 CBC with Diff Sent. zm 12:01 Christian Mckenzie is Primary Nurse. ab2 12:02 Patient has correct armband on for positive identification. Side rails up X2. ab2 12:02 No provider procedures requiring assistance completed. ab2 12:12 CT Abd/Pelvis - IV Contrast Only In Process Unspecified. EDMS 12:14 Type And Screen Sent. 12:53 Khalif Saavedra MD is Referral Physician. lisa 13:12 XRAY Chest (1 view) In Process Unspecified. EDMS 13:39 IV discontinued, intact, bleeding controlled, No redness/swelling at site. Pressure ab2 dressing applied. 13:46 Primary Nurse role handed off by Christian Mckenzie 13:51 Christian Mckenzie is Primary Nurse. ab2 Administered Medications: 11:44 Drug: NS 0.9% 1000 ml Route: IV; Rate: 1 bolus; Site: right antecubital; ab2 13:39 Follow up: Response: No adverse reaction; IV Status: Completed infusion ab2 12:45 Not Given (Duplicate Order): Cipro (ciprofloxacin) 400 mg 200 ml IVPB once over 60 mins lisa 12:45 Not Given (Duplicate Order): Flagyl (metroNIDAZOLE) 500 mg 100 ml IVPB at 200 ml/hr [facility] once over 30 mins Outcome: 12:53 Discharge ordered by . lisa 13:39 Discharged to home ambulatory, with family. ab2 13:39 Condition: good 13:39 Discharge instructions given to patient, family, Instructed on discharge instructions, follow up and referral plans. medication usage, Demonstrated understanding of instructions, follow-up care, medications, Prescriptions given X 3. 13:40 Patient left the ED. ab2 13:51 Patient left the ED. ab2 Signatures: Dispatcher [employer] Tristan Dietrich MD MD cha Williams, Irene, RN Laura Reed Victoria RN RN vg1 Christian Mckenzie ab2 Luz Marin
--- NOTE | 2021-10-04 13:17 | RAD REPORT ---
EXAM DESCRIPTION: Marybeth Single View10/04/2021 1:09 pm CLINICAL HISTORY: Abdominal pain COMPARISON: 2018 FINDINGS: The lungs appear clear of acute infiltrate. The heart is normal size IMPRESSION: No acute abnormalities displayed
[2021-10-04 17:52] VITALS: TEMP 98; O2SAT 100
[2021-10-04 17:53] VITALS: BP 121/77
== END 2021-10-04 13:51 | disposition home or self-care (01) ==
LOC: ER 10:25
DX: K92.2 Gastrointestinal hemorrhage, unspecified (principal); R10.9 Unspecified abdominal pain; F17.210 Nicotine dependence, cigarettes, uncomplicated; I10 Essential (primary) hypertension; Z79.82 Long term (current) use of aspirin
CPT/HCPCS: 36415; 71045; 74177; 80048; 80053; 83690; 83735; 83880; 84484; 85025; 85610; 86850; 86900; 86901; 93005; 96360; 96361; 99284; J0744; J7030; Q9967